=== PATIENT | male | born 1965 | race Caucasian/White ===

== ENCOUNTER → 2021-02-09 | Outpatient (CLI) | payer SELFPAY ==
[~2021-02-09] VITALS: Ht 185.4 cm; Wt 100.0 kg
[~2021-02-09] MED LIST: LIDOCAINE 1% INJ 20 ML 20 ML VIAL INJ ONE
--- NOTE | 2021-02-09 12:35 | Diagnostic Imaging Report ---
INDICATION: Left thyroid nodule. Patient presents for ultrasound-guided fine-needle aspiration and biopsy. Patient brought to the procedure and placed on table supine position. Ultrasound imaging of the left neck was performed to evaluate appropriate entry site. Left neck was then prepped and draped in usual sterile fashion. Small amount of 1% lidocaine was utilized for local anesthesia. A total of 4 passes were made into the dominant solid nodule left lobe of the thyroid utilizing 25-gauge needles and fine-needle aspiration technique. A single pass was made with a Rotex needle and a Rotex biopsy was performed. Hermitage were removed and hemostasis was obtained. Patient tolerated the procedure well and left the department in stable condition. IMPRESSION: Successful left lobe thyroid nodule, fine-needle aspiration and Rotex biopsy. Pathology results are currently pending. Dictated by: Dictated on workstation # [id number]
== END ==
LOC: RAD 11:00
PROVIDERS: ATTEND Nurse Practitioner Family
DX: E04.1 Nontoxic single thyroid nodule (principal)
CPT/HCPCS: 10005

== ENCOUNTER 2021-03-22 16:11 | Emergency (ER) | payer SELFPAY ==
[~2021-03-22] VITALS: Ht 185 cm; Wt 97.0 kg
--- OUTSIDE RECORDS SUMMARY | 2021-03-22 16:16 | XMS REPORT | Clinical Summary ---
Author Author [facility] Organization [facility] Address Unknown Phone Unavailable Care Team Providers Care Rotary Drum Dyer Name Role Phone No Pcp, Na PCP Unavailable Source Comments Some departments are not documenting in the electronic medical record. If you d o not see the information that you expected, contact Release of Information in [facility] [employer] Information Management department at [phone] for further assistan ce in locating additional records.[facility] Allergies Not on File Medications Not on file Active Problems Not on file Social History Date Tobacco Use Types Packs/Day Years Used Never Assessed Sex Assigned at Date Recorded Not on file Last Filed Vital Signs Not on file Plan of Treatment Health Maintenance Due Date Last Done Comments HIV SCREENING 1979 DTAP/TDAP VACCINES (1 - 1982 Tdap) HEPATITIS C SCREENING 1982 PHYSICAL (COMPREHENSIVE) 1982 EXAM COLORECTAL CANCER 2014 SCREENING SHINGLES RECOMBINANT 2014 VACCINE (1 of 2) INFLUENZA VACCINE 12/07/2020 Results Not on filefrom Last 3 Months Advance Directives Patient Key Holder Explanation Type Date Recorded Advance Directive/DPOA Care Teams Start Date End Date Rotary Drum Dyer Relationship Specialty 12/27/17 No Pcp, Na PCP - General
--- NOTE | 2021-03-22 17:45 | ED EENT ---
History of Present Illness General Chief Complaint: Oral/Throat Problems Stated Complaint: SORE THROAT Nursing Triage Note: PT ARRIVES TO ER WITH C/O RIGHT SIDE THROAT PAIN THAT HAS BEEN GOING ON FOR 2 MONTHS BUT WORSE SINCE LAST NIGHT. PT HAS SEEN PCP HENNAPLE TIMES AND HAS GOTTEN A BIOPSY TAKEN THAT SHOWED A BENIGN MASS Source: patient Exam Limitations: no limitations History of Present Illness Date Seen by Provider: Mar 22, 2021 Time Seen by Provider: 17:35 Initial Comments Patient is a 55-year-old male who presents to the emergency department today with a chief complaint of right-sided neck pain going on for about 2 months. Patient has seen his primary care physician multiple times through [facility] and had an ultrasound done of his neck. He states he was scheduled for a CAT scan but due to timing has not been able to get that done. Patient denies any fevers or chills. He endorses progressive dysphagia to solids and not liquids. He denies any significant weight loss but thinks he might of lost a few pounds secondary to it hurts when he eats. He denies shortness of breath chest pain. No abdominal pain nausea vomiting or diarrhea. Denies black or bloody stools. He has been taking Tylenol and ibuprofen without any relief of symptoms. He states "hydrocodone does not work for me". Per review of the medical record the patient did have a fine-needle biopsy of a mass on his left thyroid within the last month. These were "very low risk for malignant pathology." Patient does smoke cigarettes. All other review of systems reviewed and negative except as stated. Timing/Duration: gradual Location: throat Associated Symptoms: sore throat Allergies and Home Medications Allergies Coded Allergies: No Known Drug Allergies (Unverified , 02/09/21) Patient Home Medication List Home Medication List Reviewed: Yes Review of Systems Review of Systems Constitutional: see HPI Eyes: No Symptoms Reported Ears: No Symptoms Reported Nose: no symptoms reported Mouth: no symptoms reported Throat: other (Sore throat with swallowing) Respiratory: no symptoms reported Cardiovascular: no symptoms reported Gastrointestinal: no symptoms reported All Other Systems Reviewed Negative Unless Noted: Yes Past Cuamgcb-Zlfods-Weeicf Hx Patient Social History Tobacco Use?: Yes Smoking Status: Current Everyday Smoker Substance use?: Yes Substance type: Marijuana Substance frequency: Couple times a week Alcohol Use?: No Pt feels they are or have been: No Immunizations Up To Date Influenza Vaccine Up-to-Date: No; Not Current Physical Exam Vital Signs Vital Signs - First Documented 03/22/21 17:14 Temp 36.6 Pulse 91 Resp 18 B/P (MAP) 115/80 (92) Pulse Ox 97 O2 Delivery Room Air Height, Weight, BMI Height: '" Weight: lbs. oz. kg; 28.00 BMI Method: General Appearance: WD/WN, no apparent distress Eyes: bilateral eye normal inspection, bilateral eye PERRL, bilateral eye EOMI Nose: normal inspection Mouth/Throat: pharynx normal Neck: non-tender, full range of motion, supple, normal inspection Cardiovascular: regular rate, rhythm Respiratory: lungs clear, normal breath sounds, no respiratory distress Gastrointestinal: non tender, soft Neurologic/Psychiatric: alert, normal mood/affect, oriented x 3 Skin: normal color, warm/dry Progress/Results/Core Measures Results/Orders Vital Signs/I&O 03/22/21 17:14 Temp 36.6 Pulse 91 Resp 18 B/P (MAP) 115/80 (92) Pulse Ox 97 O2 Delivery Room Air Blood Pressure Mean: 92 Progress Progress Note : Time: 17:56 Progress Note Patient complaining of right-sided throat pain. Status post recent biopsy of the left thyroid nodule. Patient's vital signs are stable, he does not have a hoarse voice. He is able to handle his own secretions. Oxygen saturations are 97% on room air. I do not see any emergent reason at this time to do an emergent CT of the soft tissues of the neck. Patient clinically looks well. He has follow-up arranged through [facility]. I have strongly encouraged him to quit smoking as well as to really be aggressive at talking to his primary care provider about obtaining an outpatient CT. Patient verbalized understanding of the plan of care. I am sending him with viscous lidocaine to swish and swallow as well as some tramadol. I have given him good return precautions, all questions are sought and answered. Departure Impression Primary Impression: Dysphagia Qualified Codes: R13.13 - Dysphagia, pharyngeal phase Disposition: 01 HOME, SELF-CARE Condition: Stable Departure-Patient Inst. Decision time for Depature: 17:48 Referrals: [facility] (PCP/Family) Primary Care Physician Patient Instructions: Dysphagia (DC) Add. Discharge Instructions: Please follow-up closely with your primary care provider through [facility]. I have prescribed you some viscous lidocaine which may help with the pain and swallowing. I have also prescribed you some tramadol which may help your discomfort. You need to pester your primary care physician to obtain the CT scan of your neck. Return to the emergency department if you have any new, concerning or worsening complaints or complete inability to swallow your own secretions. Scripts Lidocaine HCl (Lidocaine HCl Viscous) 15 Ml Solution 5 ML MM BID PRN for throat pain, #100 EA swish and swallow Prov: DALJIT SOLIMAN MD 03/22/21 Tramadol HCl (Tramadol HCl) 50 Mg Tablet 50 MG PO Q6H PRN for PAIN, #15 TAB 0 Refills Prov: DALJIT SOLIMAN MD 03/22/21 DALJIT SOLIMAN MD Mar 22, 2021 17:45
[2021-03-22] MEDS ORDERED: TRM50T PO (17:56)
[2021-03-22] MEDS ORDERED: LIDO20SO23 MM (17:56)
[2021-03-22 18:04] VITALS: BP 145/85
== END 2021-03-22 18:04 | disposition home or self-care (01) ==
LOC: EDUNIT# 16:11 → ER 16:12
DX: R13.10 Dysphagia, unspecified (principal); F17.200 Nicotine dependence, unspecified, uncomplicated
CPT/HCPCS: 99281

== ENCOUNTER → 2021-04-16 | Outpatient (CLI) | payer SELFPAY ==
[~2021-04-16] MED LIST changes: +LIDO20SO23 MM; -LIDOCAINE 1% INJ 20 ML 20 ML VIAL INJ ONE; +TRM50T PO
--- NOTE | 2021-04-16 13:19 | Diagnostic Imaging Report ---
CLINICAL INDICATION: Patient with right neck pain times several months. Patient has history of smoking. EXAM: Axial CT scan of the neck soft tissue performed without IV contrast. Sagittal and coronal reformatted images are created. Auto Exposure Controls were utilized during the CT exam to meet ALARA standards for radiation dose reduction. COMPARISON: None. FINDINGS: The nasopharynx, oropharynx, hypopharynx, and laryngeal soft tissue structures are symmetric and unremarkable. The visualized portions of the oral cavity, tongue, sublingual and submandibular regions are unremarkable. Salivary glands are unremarkable. There is a partially obscured left thyroid lobe nodule measuring at least 2.8 cm. There is also enlargement of the left thyroid lobe compared to the right side. There is no lymphadenopathy. Patient is edentulous. Limited visualization of the intracranial structures shows no significant abnormality. Orbits and globes are unremarkable. There is mild mucosal thickening involving the ethmoid sinus. Mastoid air cells are clear. There are small cervical spine degenerative spurs. Visualized upper lung avery are clear with mild emphysematous changes. IMPRESSION: 1: There is a partially obscured at least 2.8 cm low-density lesion in the left thyroid lobe. Nonemergent thyroid ultrasound would better evaluate. 2: Otherwise, there is no neck soft tissue mass or lymphadenopathy. 3: Remainder of this exam shows no other significant abnormality. Dictated by: Dictated on workstation # [id number]
== END ==
LOC: RAD 12:45
PROVIDERS: ATTEND Pediatrics
DX: M54.2 Cervicalgia (principal); R13.10 Dysphagia, unspecified; Z87.891 Personal history of nicotine dependence
CPT/HCPCS: 70490

== ENCOUNTER → 2021-11-13 | Outpatient (CLI) | payer OTHER ==
--- NOTE | 2021-11-13 13:57 | Diagnostic Imaging Report ---
INDICATION: Left hip pain. COMPARISON: None FINDINGS: Frontal radiographic view of the pelvis and 2 dedicated radiographic views of the left hip were obtained. There is a large subchondral area of abnormal sclerosis with central lucency involving the superior margins of the left femoral head. Findings are concerning for femoral head osteonecrosis. No acute osseous abnormalities seen. Joint spaces are maintained. No unexpected radiopaque foreign bodies are identified. IMPRESSION: 1. 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 Correlation with MRI is recommended. 2. No acute fracture or dislocation of the pelvis or left hip. Dictated by: Dictated on workstation # [id number]
== END ==
LOC: RAD 13:18
PROVIDERS: ATTEND Family Medicine
DX: Z02.71 Encounter for disability determination (principal); M25.552 Pain in left hip

== ENCOUNTER 2022-01-18 08:41 | Outpatient (RCR) | payer SELFPAY | END 2022-02-05 | disposition home or self-care (01) | LOC: ONC 08:41 | PROVIDERS: ATTEND Internal Medicine Hematology & Oncology | DX: C02.4 Malignant neoplasm of lingual tonsil (principal) | CPT/HCPCS: 99204 ==

== ENCOUNTER → 2022-02-23 | Outpatient (CLI) | payer SELFPAY ==
[~2022-02-23] MED LIST changes: +CATHETER FLUSH 10 ML SYR IV PRN; +HOLD METFORMIN - RECEIVED CONTRAST 20 ML VIAL IV SCH; +IOHEXOL 350 MG/ML 100 ML (OMNIPAQUE 350) VIAL IV ONE; +LISI10TA25 PO; +MELO10CA3 PO; +NS 100 ML (IVPB) BAG IV ONE
--- NOTE | 2022-02-23 15:25 | Diagnostic Imaging Report ---
INDICATION: Head and neck cancer. COMPARISON: Neck CT dated 04/16/2021. TECHNIQUE: A post IV contrast enhanced CT neck, chest, abdomen, and pelvis was performed with multiplanar reconstructions. FINDINGS: New from prior is a large enhancing right neck mass measuring 4.9 cm AP x 3.3 cm transverse x 5.4 cm cephalocaudal. This superiorly displaces and distorts the right lateral tongue contour and laterally abuts the medial cortex of the right mandibular angle and caudally terminates just above the level of the hyoid involving the anterior wall of the right valleculae. The free edge of the epiglottis is normal. The pre-epiglottic fat shows no distortion. There is a large right level 2 cervical lymph node measuring 2.8 x 2.1 cm. There is a partially necrotic smaller but presumed metastatic left cervical level 2 node measuring 1.7 x 1.5 cm. There are some equivocal posterior triangle nodes above and below the hyoid, the largest of which measures 1 x 0.6 cm. Prevertebral and retropharyngeal spaces are normal. There is leftward deviation of the rosa and hypopharynx. The submandibular and parotids are unremarkable. There is no suspicious thyroidal lesion. The vascularity is patent. The visualized intracranial contents, orbits, and sinonasal spaces are unremarkable. There is no mastoid effusion. No suspicious lytic or sclerotic bone lesion. CHEST: No lung mass, infiltrate, or suspicious pulmonary nodule. No thoracic adenopathy. No edema, pneumonia, or chest effusion. ABDOMEN/PELVIS: There is no pathologically enlarged or distorted abdominopelvic mesenteric or retroperitoneal lymph nodes. No omental infiltration. The liver, spleen, adrenals, pancreas, and gallbladder are unremarkable. The unobstructed kidneys are normal. The atherosclerotic aorta is patent and nonaneurysmal. The prostate, seminal vesicles, and urinary bladder are unremarkable. There is no suspicious lytic or sclerotic bony lesion in the neck, chest, abdomen, or pelvis. There is degenerative disease and chronic L5 spondylolysis defects. IMPRESSION: 1. Large presumed primary malignant right neck mass with at least bilateral level 2 cervical adenopathy presumed. A few additional shotty posterior triangle nodes are noted, indeterminate. 2. No findings of metastatic disease to the chest, abdomen, or pelvis. Dictated by: Dictated on workstation # [id number]
== END ==
LOC: RAD 11:29
PROVIDERS: ATTEND Internal Medicine Hematology & Oncology
DX: C02.4 Malignant neoplasm of lingual tonsil (principal)
CPT/HCPCS: 70491; 71260; 74176

== ENCOUNTER 2022-02-24 05:32 | Outpatient (CLI) | payer MEDICAID ==
[~2022-02-24] VITALS: Ht 187 cm; Wt 95.0 kg
[~2022-02-24 05:32] MED LIST changes: -CATHETER FLUSH 10 ML SYR IV PRN; -HOLD METFORMIN - RECEIVED CONTRAST 20 ML VIAL IV SCH; -IOHEXOL 350 MG/ML 100 ML (OMNIPAQUE 350) VIAL IV ONE; -LISI10TA25 PO; -MELO10CA3 PO; -NS 100 ML (IVPB) BAG IV ONE
[2022-02-25] MEDS ORDERED: LISI10TA25 PO (13:54)
[2022-02-25] MEDS ORDERED: MELO10CA3 PO (13:54)
[2022-03-03] MEDS ORDERED: PANT40TA2 PO (09:27)
[2022-03-03] MEDS ORDERED: SUCR1TAB36 PO (09:27)
[2022-03-03] MEDS ORDERED: ACHD5005 PO (09:27)
== END 2022-02-25 14:06 | disposition home or self-care (01) ==
LOC: PREOP 05:32
PROVIDERS: ATTEND Surgery
DX: Z01.818 Encounter for other preprocedural examination (principal)

== ENCOUNTER 2022-03-03 07:06 | Day surgery (SDC) | payer MEDICAID ==
[2022-03-03] VITALS (8 sets, daily range): BP systolic 103–128; BP diastolic 66–87
[~2022-03-03] VITALS: Ht 185.4 cm; Wt 95.0 kg
[~2022-03-03 07:06] MED LIST changes: +LISI10TA25 PO; +MELO10CA3 PO
[2022-03-03] MEDS ORDERED: 0.9% SODIUM CHLORIDE PF INJ 20 ML VIAL ONE (07:16)
[2022-03-03] MEDS ORDERED: LIDOCAINE/EPI 1%-1:100,000 (XYLOCAINE) 10 ML ONE (07:17)
[2022-03-03] MEDS ORDERED: HEParin (CENTRAL IV FLUSH) 500 UNIT/5 ML SYR ONE (07:17)
[2022-03-03] MEDS ORDERED: PROPOFOL INJECTION 50 ML IV ONE ×2 (07:30→08:43)
[2022-03-03] MEDS ORDERED: fentaNYL INJ 100 MCG/2 ML AMP ONE (07:31)
[2022-03-03] MEDS ORDERED: MIDAZOLAM 2 MG/2 ML (VERSED) VIAL ONE (07:31)
[2022-03-03] MEDS ORDERED: NS (IVPB) 50 ML ONE (07:40)
[2022-03-03] MEDS ORDERED: ceFAZolin INJECTION 2,000 MG ONE (07:40)
[2022-03-03] MEDS ORDERED: LACTATED RINGERS 1,000 ML IV PRN (07:45)
[2022-03-03] MEDS ORDERED: ceFAZolin INJECTION 2,000 MG in NS (IVPB) 50 ML IV ONE (07:45)
--- NOTE | 2022-03-03 08:15 | Progress Note-Pre Operative ---
Pre-Operative Progress Note Date of Available H&P: Feb 23, 2022 Date H&P Reviewed: Mar 03, 2022 Time H&P Reviewed: 08:09 History & Physical: H&P Reviewed, Patient Examed, No changes noted Pre-Operative Diagnosis: Tonsillar CA, Venous insufficiency CARLOS MUNSON DO Mar 03, 2022 08:15
--- NOTE | 2022-03-03 09:14 | Diagnostic Imaging Report ---
Indication: Port-A-Cath placement Intraoperative fluoroscopy view obtained in surgery during Port-A-Cath placement. Single view obtained, 5.4 seconds of fluoroscopy time was used. Single view demonstrates Port-A-Cath over the right chest with catheter entering the right subclavian vein, catheter tip overlies the upper SVC. IMPRESSION: Intraoperative fluoroscopy view demonstrates Port-A-Cath placement as above. Dictated by: Dictated on workstation # [id number]
--- NOTE | 2022-03-03 09:21 | Anesthesia-General Post-Op ---
MAC Patient Condition Mental Status/LOC: Same as Preop Cardiovascular: Satisfactory Nausea/Vomiting: Absent Respiratory: Satisfactory Pain: Controlled Complications: Absent Post Op Complications Complications None Follow Up Care/Instructions Patient Instructions None needed. Anesthesiology Discharge Order Discharge Order Patient is doing well, no complaints, stable vital signs, no apparent adverse anesthesia problems. No complications reported per nursing. HELDER STAPLES CRNA Mar 03, 2022 09:21
[2022-03-03] MEDS ORDERED: morphine INJ 10 MG/ML 1ML (SYR OR VIAL) ONE (09:23)
--- NOTE | 2022-03-03 09:25 | Progress Note-Post Operative ---
Post-Operative Progess Note Surgeon (s)/Automobile Spring Repairer (s) Surgeon CARLOS MUNSON DO Automobile Spring Repairer: PIPER ShinII Pre-Operative Diagnosis Tonsillar CA, Venous insufficiency Post-Operative Diagnosis same plus Gastric ulcer duodenitis esophagitis Procedure & Operative Findings Date of Procedure 03/03/22 Procedure Performed/Findings Luana-Cath Placement EGD with biopsy PROCEDURE: The patient was taken to the operating suite, was prepped and draped in the sterile fashion. A surgical pause was performed. Local anesthetic was infiltrated at the clavicle and along the tract to the right anterior chest, where more local was placed so the pocket could be created. Using an 18 gauge finder needle with negative inspiration the right subclavian vein was accessed on the first attempt and dark nonpulsatile blood was withdrawn. The wire was inserted and fluoroscopy assured proper placement. The needle was removed and the wire was then secured. A #11 blade scalpel was used to make an incision over the right chest and along guidewire. Cautery was used to dissect down to the pectoral fascia. A pocket was created with blunt dissection. The catheter was then tunneled to the right chest pocket. The dilator sheath was then advanced over the wire under fluoroscopy and the dilator and wire were removed. The Groshong catheter was inserted through the sheath and the sheath was then removed. The Groshong wire was removed. Fluoroscopy was used to cut to length and this was then attached to the port which was then placed within the pocket. The port was then accessed without difficulty. It was then flushed with saline and then heparin. The port was secured in place with a 3-0 Prolene stitch. The subcutaneous tissues were then reapproximated using 3-0 Vicryl. Finally the skin was closed with 4-0 undyed monocryl, 3 interrupted sutures. The areas were then washed and dried. Skin Affix was placed over incision. The insertion point of the neck Skin Affix was placed over the incision. The patient tolerated the procedure well without complication. PROCEDURE NOTE: The patient was in the OR had just had Port placed, left in the supine position. He was sedated by the PAYROLL AND BENEFITS ANALYST who then monitored vitals the entire time, heart rate, blood pressure and pulse ox and the scope was inserted down the mouth through the esophagus into the stomach. On the way down, noted severe esophagitis, took a picture, pushed into the stomach and noted gastritis and antral ulcers. Pushed into the duodenum; duodenum looked inflamed and did a biopsy here. Pulled back and did a biopsy of the antral ulcers, then retroflexed the scope, saw a moderate hiatal hernia, took a picture of this and then pulled the scope into the GE junction and then did a biopsy of the GE junction. Pushed the scope back into the stomach and watched as needle came in, grabbed the catheter with the wire and then pulled this all the way out of the mouth. Attached PEG and then followed it back down into stomach and took a picture of the PEG in position. Next, suctioned all the air out of the stomach. At this point pulled the scope up the esophagus and out the mouth. The patient tolerated the procedure, and he was taken to PACU Anesthesia Type IV sedation by Anesthesia Estimated Blood Loss Estimated blood loss (mL): less than 5ml Specimens/Packing Specimens Removed none CARLOS MUNSON DO Mar 03, 2022 09:25
[2022-03-03] MEDS ORDERED: PANT40TA2 PO (09:27)
[2022-03-03] MEDS ORDERED: SUCR1TAB36 PO (09:27)
[2022-03-03] MEDS ORDERED: ACHD5005 PO (09:27)
--- NOTE | 2022-03-03 09:29 | Endoscopy Discharge Instruct ---
Endo Procedure/Findings Findings 1.: Gastric Ulcer 2.: Hiatal Hernia Discharge Instructions - Activity: You might feel a little sleepy until tomorrow. This is due to the medicine you received to relax you. Until tomorrow, you should: NOT drive a car, operate machinery or power tools. NOT drink any alcoholic beverages. NOT make any important decisions or sign importortant papers. Do not return to work until tomorrow, unless otherwise instructed. Resume previous activities tomorrow. Diet: Start by taking liquids. If you tolerate liquids, advance to solid food. 1.: EGD in 6-8 weeks Notify Physician - If you experience excessive bleeding, unusual abdominal pain, fever, or chest pain, contact your doctor immediately. CARLOS MUNSON DO Mar 03, 2022 09:29
[2022-03-03] MEDS ORDERED: ONDANSETRON 4 MG/2 ML (SDV) Z0FRAN IVP PRN (09:30)
[2022-03-03] MEDS ORDERED: MEPERIDINE (DEMEROL) INJ 50 MG/ML IVP ONE (09:30)
[2022-03-03] MEDS ORDERED: morphine INJ 10 MG/ML 1ML (SYR OR VIAL) IVP ONE (09:30)
--- NOTE | 2022-03-03 09:30 | Discharge Inst-Surgical ---
Discharge Inst-Surgical Depart Medication/Instructions New, Converted or Re-Newed RX: Transmitted to Pharmacy Patient Instructions Follow up Appt: Make appointment for 1 week. [phone] Instructions: No lifting greater than 20 pounds. No strenuous activity. May shower in 24 hours, no tub bath or soaking. Use incentive spirometer at home as directed. No Smoking Skin/Wound Care: May remove bandages in am. You need to leave the Dermabond on incision it will fall off on it's own. Symptoms to Report: Appetite Changes, Extremity Discoloration, Numbness/Tingling, Swelling Increased, Bleeding Excessive, Eyesight Changes, Pain Increased, Urine Color Change, Constipation(Persistent), Fever over 101 degree F, Pain/Pressure in chest, Urinating Difficulty, Cough Up/Vomit Blood, Heart Beat Irreg/Pounding, Pain/Pressure in jaw, Cramps in feet or legs, Lightheadedness, Pain/Pressure in shoulder, Diarrhea(Persistent), Memory Changes Suddenly, Questions/Concerns, Weight gain consecutive days, Dizziness/Fainting, Nausea/Vomiting, Shortness of Breath, Weight gain over 2 pounds If questions or concerns contact your physician Or seek help at emergency department. Activity Activity as Tolerated: Yes Activity Instructions: Avoid Stress to Incision Driving Instructions: No Driving/Refer to Dr. Olson Discharge Diet: No Restrictions Diet After 24 Hours: Clear Liquid if Nauseous If Any Problems/Questions/Issu: Contact Your Physician, Go to Emergency Room Skin/Wound Care Infection Signs and Symptoms: Increased Redness, Foul Odor of Wound, Increased Drainage, Skin Itchy or Has a Rash, Increased Swelling, Temperature Above 101 F Bathing Instructions: Shower Stitches/[place]/Dermabond Dis: CARLOS Roland DO Mar 03, 2022 09:30
--- NOTE | 2022-03-04 03:47 | OPERATIVE REPORT ---
DATE OF SERVICE: 03/03/2022 PREOPERATIVE DIAGNOSIS: Tonsillar carcinoma. POSTOPERATIVE DIAGNOSIS: Tonsillar carcinoma. PROCEDURE: Gastrostomy tube placement. SURGEON: Kayy Stevenson DO and see Dr. Tamayo dictation for EGD. ANESTHESIA: Per MDA. ESTIMATED BLOOD LOSS: None. COMPLICATIONS: None. INDICATIONS: The patient is a 56-year-old male with tonsillar carcinoma. He was discussed risks and benefits of procedure and consent was signed in the chart. DESCRIPTION OF PROCEDURE: Dr. Tamayo EGD, he inflated the stomach where that was visualized and it was ballottable. The areas on the stomach was prepped and draped in sterile fashion. Local anesthetic was infiltrated. A #11 blade scalpel was used to make a small stab incision. Angiocath needle was inserted through the incision and the needle was removed. This was then snared by Dr. Tamayo where the guidewire was inserted, which he brought out through the mouth. The gastrostomy tube was attached to the wire, which then I pulled slowly until this was brought out through the abdominal incision and a bolster was up against the stomach and abdominal wall. This was then secured with an external bolster and cut to length and was inserted on the tube. The patient then had the area washed and dried and sterile bandages were applied. The patient tolerated the procedure well. Please see Dr. Tamayo dictation. Job ID: [id number] DocumentID: [id number] Dictated Date: 03/03/2022 17:49:39 Automatic Serging Machine Operator Date: 03/04/2022 03:45:28 Dictated By: KAYY STEVENSON DO
== END 2022-03-03 10:30 | disposition home or self-care (01) ==
LOC: SDC 07:06
PROVIDERS: ATTEND Surgery
DX: C02.4 Malignant neoplasm of lingual tonsil (principal); I87.2 Venous insufficiency (chronic) (peripheral); K25.9 Gastric ulcer, unspecified as acute or chronic, without hemorrhage or perforation; K29.80 Duodenitis without bleeding; K20.90 Esophagitis, unspecified without bleeding; K29.70 Gastritis, unspecified, without bleeding; K31.9 Disease of stomach and duodenum, unspecified; F17.210 Nicotine dependence, cigarettes, uncomplicated; Z28.310 Unvaccinated for COVID-19
CPT/HCPCS: 36561; 43239; 43246; 76000; 87081; C1788

== ENCOUNTER → 2022-03-08 | Outpatient (RCR) | payer MEDICAID ==
[2022-02-23 11:32] LABS: BASOPHILS # (AUTO) 0.1 10^3/uL (0.0-0.1); BASOPHILS % (AUTO) 1 % (0-10); EOSINOPHILS # (AUTO) 0.3 10^3/uL (0.0-0.3); EOSINOPHILS % (AUTO) 2 % (0-10); HEMATOCRIT 42 % (40-54); HEMOGLOBIN 14.1 g/dL (13.3-17.7); LYMPHOCYTES # (AUTO) 1.5 10^3/uL (1.0-4.0); LYMPHOCYTES % (AUTO) 10 % (12-44); MEAN CORPUSCULAR HEMOGLOBIN 31 pg (25-34); MEAN CORPUSCULAR HGB CONC 34 g/dL (32-36); MEAN CORPUSCULAR VOLUME 92 fL (80-99); MEAN PLATELET VOLUME 10.1 fL (9.0-12.2); MONOCYTES # (AUTO) 0.8 10^3/uL (0.0-1.0); MONOCYTES % (AUTO) 5 % (0-12); NEUTROPHILS # (AUTO) 12.9 10^3/uL (1.8-7.8); NEUTROPHILS % (AUTO) 82 % (42-75); PLATELET COUNT 296 10^3/uL (130-400); WHITE BLOOD COUNT 15.7 10^3/uL (4.3-11.0)
[2022-02-23 11:54] LABS: BILIRUBIN,TOTAL 0.5 MG/DL (0.1-1.0); CALCIUM 9.7 MG/DL (8.5-10.1); CREATININE SERUM 1.03 MG/DL (0.60-1.30); POTASSIUM 4.5 MMOL/L (3.6-5.0); TOTAL PROTEIN 6.9 GM/DL (6.4-8.2)
[~2022-03-08] VITALS: Ht 185.4 cm; Wt 95.3 kg
[~2022-03-08] MED LIST changes: +ACHD5005 PO; +CISPLATIN IV SCH; +DEXAMETHASONE IV SCH; +FOSAPREPITANT (CANCER CENTER) 150 MG in NS (IVPB) CANCER CENTER ONLY 150 ML IV SCH; +HEParin (CENTRAL IV FLUSH) 500 UNIT/5 ML SYR IV PRN; +MAGNESIUM SULFATE IV SCH; +MANNITOL IV SCH; +NS IV 1000 ML (CANCER CTR) IV SCH; +NS IV SCH; +ONDANSETRON IV SCH; +PANT40TA2 PO; +POTASSIUM CHLORIDE IV SCH; +SUCR1TAB36 PO; +[UNRECOGNIZED DRUG - OTHER] IV SCH
[2022-03-08 10:14] LABS: BASOPHILS # (AUTO) 0.1 10^3/uL (0.0-0.1); BASOPHILS % (AUTO) 1 % (0-10); EOSINOPHILS # (AUTO) 0.6 10^3/uL (0.0-0.3); EOSINOPHILS % (AUTO) 3 % (0-10); HEMATOCRIT 41 % (40-54); HEMOGLOBIN 13.7 g/dL (13.3-17.7); LYMPHOCYTES # (AUTO) 1.8 10^3/uL (1.0-4.0); LYMPHOCYTES % (AUTO) 9 % (12-44); MEAN CORPUSCULAR HEMOGLOBIN 31 pg (25-34); MEAN CORPUSCULAR HGB CONC 34 g/dL (32-36); MEAN CORPUSCULAR VOLUME 90 fL (80-99); MEAN PLATELET VOLUME 10.4 fL (9.0-12.2); MONOCYTES # (AUTO) 1.1 10^3/uL (0.0-1.0); MONOCYTES % (AUTO) 6 % (0-12); NEUTROPHILS # (AUTO) 16.3 10^3/uL (1.8-7.8); NEUTROPHILS % (AUTO) 82 % (42-75); PLATELET COUNT 286 10^3/uL (130-400)
[2022-03-08 10:38] LABS: BILIRUBIN,TOTAL 0.6 MG/DL (0.1-1.0); CALCIUM 10.4 MG/DL (8.5-10.1); MAGNESIUM 1.9 MG/DL (1.6-2.4); POTASSIUM 4.4 MMOL/L (3.6-5.0); TOTAL PROTEIN 7.2 GM/DL (6.4-8.2)
== END | disposition home or self-care (01) ==
LOC: ONC 02-23 09:49
PROVIDERS: ATTEND Internal Medicine Hematology & Oncology
DX: Z51.0 Encounter for antineoplastic radiation therapy (principal); Z51.11 Encounter for antineoplastic chemotherapy; C02.4 Malignant neoplasm of lingual tonsil
CPT/HCPCS: 77300; 77301; 77334; 77338; 77470; 80053; 83735; 85025; G0463; 36415; 36591; 77386; 96360; 96361; 96367; 96375; 96413; 99213

== ENCOUNTER 2022-03-21 16:48 | Emergency (ER) | payer MEDICAID ==
[~2022-03-21] VITALS: Ht 185 cm; Wt 88.5 kg
[~2022-03-21 16:48] MED LIST changes: -CISPLATIN IV SCH; -DEXAMETHASONE IV SCH; -FOSAPREPITANT (CANCER CENTER) 150 MG in NS (IVPB) CANCER CENTER ONLY 150 ML IV SCH; -HEParin (CENTRAL IV FLUSH) 500 UNIT/5 ML SYR IV PRN; -MAGNESIUM SULFATE IV SCH; -MANNITOL IV SCH; -NS IV 1000 ML (CANCER CTR) IV SCH; -NS IV SCH; -ONDANSETRON IV SCH; -POTASSIUM CHLORIDE IV SCH; -[UNRECOGNIZED DRUG - OTHER] IV SCH
--- NOTE | 2022-03-21 17:04 | ED Abdominal Pain ---
General Chief Complaint: Abdominal/GI Problems Stated Complaint: VOMITING/LETHARGIC Nursing Triage Note: pt states he has throat cancer and is on chemo, has had persistent nasuea and vomiting for the past few days. unable to keep anything down, has LLQ abd pain Source of Information: Patient Exam Limitations: No Limitations History of Present Illness Date Seen by Provider: Mar 21, 2022 Time Seen by Provider: 17:04 Initial Comments 56 y/o male presents this afternoon with c/o nausea and vomiting x 1 week. Pt states he is currently on radiation and chemotherapy for throat cancer. He has radiation 5x/wk and chemotherapy once/wk--has had two treatments so far. Pt has some epigastric and LUQ abdominal pain during episodes of vomiting, but otherwise denies pain. Pt states he has had a poor appetite for several weeks. Timing/Duration: 1 Week Severity/Quality: Mild Location: LUQ Radiation: No Radiation Modifying Factors: Improves With Analgesics, Improves With Antacids; Worsens With Vomiting Associated Symptoms: No Back Pain, No Chest Pain, No Diaphoresis, No Feve r/Chills, No Fatigue, No Headache, No Heartburn; Nausea/Vomiting; No Rash, No Shortness of Air, No Syncope, No Weakness Allergies and Home Medications Allergies Coded Allergies: No Known Drug Allergies (Unverified , 03/03/22) Patient Home Medication List Home Medication List Reviewed: Yes Hydrocodone Bit/Acetaminophen (HYDROcodone/APAP 5 MG/325 MG TAB) 1 Tab Tab, 1 TAB PO Q8H PRN for PAIN-MODERATE (5-7) Prescribed by: CARLOS MUNSON on 03/03/22 09 Lidocaine HCl (Lidocaine HCl Viscous) 15 Ml Solution, 5 ML MM BID PRN for throat pain Prescribed by: DALJIT SOLIMAN on 03/22/21 1756 Lisinopril (Lisinopril) 10 Mg Tablet, 10 MG PO DAILY, (Reported) Entered as Reported by: FELIPE MARTINEZ on 02/25/22 135 Meloxicam, Submicronized (Meloxicam) 10 Mg Capsule, 15 MG PO DAILY, (Reported) Entered as Reported by: FELIPE MARTINEZ on 02/25/22 1354 Pantoprazole Sodium (Protonix) 40 Mg Tablet.dr, 40 MG PO BID Prescribed by: CARLOS MUNSON on 03/03/22 09 Sucralfate (Carafate) 1 Gram Tablet, 1 GM PO ACHS Prescribed by: CARLOS MUNSON on 03/03/22926 Tramadol HCl (Tramadol HCl) 50 Mg Tablet, 50 MG PO Q6H PRN for PAIN Prescribed by: DALJIT SOLIMAN on 03/22/21 1756 Review of Systems Review of Systems Constitutional: No chills, No diaphoresis, No fever; malaise; No weakness EENTM: No Symptoms Reported Respiratory: No Symptoms Reported Cardiovascular: No Symptoms Reported Gastrointestinal: Abdominal Pain; Denies Blood Streaked Stools, Denies Diarrhea, Denies Difficulty Swallowing; Nausea, Poor Appetite; Denies Poor Fluid Intake; Vomiting Genitourinary: Denies Burning, Denies Discharge, Denies Drainage, Denies Frequency, Denies Flank Pain, Denies Hematuria, Denies Incontinence, Denies Pain, Denies Urgency Musculoskeletal: No back pain, No muscle pain, No muscle stiffness, No muscle weakness Skin: no symptoms reported Psychiatric/Neurological: No Symptoms Reported Endocrine: No Symptoms Reported Hematologic/Lymphatic: No Symptoms Reported Past Hipvcdm-Yjryii-Vxpbeh Hx Patient Social History Tobacco Use?: No Smoking Status: Former Smoker Substance use?: No Alcohol Use?: No Pt feels they are or have been: No Immunizations Up To Date Tetanus Booster (TDap): Unknown Influenza Vaccine Up-to-Date: No; Not Current Seasonal Allergies Seasonal Allergies: Yes Past Medical History Surgery/Hospitalization HX: throat cancer port placement, peg tube placement Surgeries: No Respiratory: No Currently Using CPAP: No Currently Using BIPAP: No Cardiac: Yes Hypertension Neurological: No Genitourinary: No Gastrointestinal: Yes Gastroesophageal Reflux Musculoskeletal: No Endocrine: No HEENT: Yes (TONSILLAR CA) Cancer: Yes (TONSILLAR CANCER) Psychosocial: Yes Sleep Difficulties, Anxiety Integumentary: No Blood Disorders: No Physical Exam Vital Signs Vital Signs - First Documented 03/21/22 16:55 Temp 36.5 Pulse 92 Resp 20 B/P (MAP) 129/92 (104) Pulse Ox 98 Capillary Refill : Less Than 3 Seconds Height/Weight/BMI Height: '" Weight: lbs. oz. 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, no motor/sensory deficits, alert, normal mood/affect, oriented x 3 Skin: normal color, warm/dry Progress/Results/Core Measures Results/Orders Lab Results Laboratory Tests Test 03/21/22 17:15 03/21/22 18:05 Range/Units White Blood Count 9.2 4.3-11.0 10^3/uL Red Blood Count 4.45 4.30-5.52 10^6/uL Hemoglobin 13.5 13.3-17.7 g/dL Hematocrit 39 L 40-54 % Mean Corpuscular Volume 88 80-99 fL Mean Corpuscular Hemoglobin 30 25-34 pg Mean Corpuscular Hemoglobin Concent 35 32-36 g/dL Red Cell Distribution Width 13.2 10.0-14.5 % Platelet Count 258 130-400 10^3/uL Mean Platelet Volume 9.8 9.0-12.2 fL Immature Granulocyte % (Auto) 0 % Neutrophils (%) (Auto) 80 H 42-75 % Lymphocytes (%) (Auto) 11 L 12-44 % Monocytes (%) (Auto) 8 0-12 % Eosinophils (%) (Auto) 1 0-10 % Basophils (%) (Auto) 0 0-10 % Neutrophils # (Auto) 7.3 1.8-7.8 10^3/uL Lymphocytes # (Auto) 1.0 1.0-4.0 10^3/uL Monocytes # (Auto) 0.7 0.0-1.0 10^3/uL Eosinophils # (Auto) 0.1 0.0-0.3 10^3/uL Basophils # (Auto) 0.0 0.0-0.1 10^3/uL Immature Granulocyte # (Auto) 0.0 0.0-0.1 10^3/uL Sodium Level 132 L 135-145 MMOL/L Potassium Level 4.1 3.6-5.0 MMOL/L Chloride Level 99 98-107 MMOL/L Carbon Dioxide Level 20 L 21-32 MMOL/L Anion Gap 13 5-14 MMOL/L Blood Urea Nitrogen 25 H 7-18 MG/DL Creatinine 1.17 0.60-1.30 MG/DL Estimat Glomerular Filtration Rate 73 BUN/Creatinine Ratio 21 Glucose Level 113 H 70-105 MG/DL Calcium Level 9.8 8.5-10.1 MG/DL Corrected Calcium 9.8 8.5-10.1 MG/DL Total Bilirubin 0.7 0.1-1.0 MG/DL Aspartate Amino Transf (AST/SGOT) 20 5-34 U/L Alanine Aminotransferase (ALT/SGPT) 31 0-55 U/L Alkaline Phosphatase 92 40-136 U/L Total Protein 6.8 6.4-8.2 GM/DL Albumin 4.0 3.2-4.5 GM/DL Lipase 45 8-78 U/L Urine Color ORANGE Urine Clarity CLEAR Urine pH 5.5 5-9 Urine Specific Thomson >=1.030 1.016-1.022 Urine Protein NEGATIVE NEGATIVE Urine Glucose (UA) NEGATIVE NEGATIVE Urine Ketones 1+ H NEGATIVE Urine Nitrite NEGATIVE NEGATIVE Urine Bilirubin NEGATIVE NEGATIVE Urine Urobilinogen 0.2 < = 1.0 MG/DL Urine Leukocyte Esterase NEGATIVE NEGATIVE Urine RBC (Auto) NEGATIVE NEGATIVE Urine RBC NONE /HPF Urine WBC NONE /HPF Urine Squamous Epithelial Cells NONE /HPF Urine Crystals NONE /LPF Urine Bacteria NEGATIVE /HPF Urine Casts NONE /LPF Urine Mucus SMALL H /LPF Urine Culture Indicated NO My Orders Orders - MARK BRADSHAW MANAGER SPANISH Cbc With Automated Diff (03/21/22 17:05) Comprehensive Metabolic Panel (03/21/22 17:05) Lipase (03/21/22 17:05) Urinalysis (03/21/22 17:05) Ed Iv/Invasive Line Start (03/21/22 17:05) Ondansetron Injection (Zofran Injectio (03/21/22 17:15) Ketorolac Injection (Toradol Injection) (03/21/22 17:15) Ns Iv 1000 Ml (Sodium Chloride 0.9%) (03/21/22 17:15) Rx-Promethazine Hcl (Rx-Phenergan Supp) (03/21/22 18:40) Medications Given in ED Current Medications Medications Dose Ordered Sig/Helga Route Start Time Stop Time Status Last Admin Dose Admin Ketorolac Tromethamine 30 mg ONCE ONCE IVP 03/21/22 17:15 03/21/22 17:16 DC 03/21/22 17:18 30 MG Ondansetron HCl 4 mg ONCE ONCE IVP 03/21/22 17:15 03/21/22 17:16 DC 03/21/22 17:18 4 MG Sodium Chloride 1,000 ml @ 0 mls/hr Q0M ONCE IV 03/21/22 17:15 03/21/22 17:16 DC 03/21/22 17:18 999 MLS/HR Vital Signs/I&O 03/21/22 16:55 Temp 36.5 Pulse 92 Resp 20 B/P (MAP) 129/92 (104) Pulse Ox 98 Blood Pressure Mean: 104 Progress Progress Note : Progress Note Pt is nontoxic appearing, in NAD. He has had no episodes of emesis in ED today. Labs reassuring, vitals stable, he is afebrile. Suspect his symptoms are related to cancer treatments. He reports improvement of pain and nausea with toradol, antiemetics, and IVF. Departure Impression Primary Impression: Chemotherapy induced nausea and vomiting Disposition: HOME, SELF-CARE Condition: Improved Departure-Patient Inst. Decision time for Depature: 18:40 Referrals: [facility] [place] ([place]) Primary Care Physician RAQUEL RANDALL APRN (Family) Primary Care Physician Patient Instructions: Nausea and Vomiting With Cancer Treatment Add. Discharge Instructions: Take small, frequent sips of fluids to prevent dehydration. Phenergan as needed for nausea/vomiting. Brook[place] diet. Follow up with any new/worsening concerns All discharge instructions reviewed with patient and/or family. Voiced understanding. MARK BRADSHAW APRN Mar 21, 2022 17:04
[2022-03-21] MEDS ORDERED: NS IV 1000 ML 1,000 ML IV ONE (17:15)
[2022-03-21] MEDS ORDERED: KETOROLAC 30 MG/ML VIAL IVP ONE (17:15)
[2022-03-21] MEDS ORDERED: ONDANSETRON 4 MG/2 ML (SDV) Z0FRAN IVP ONE (17:15)
[2022-03-21 17:28] LABS: BASOPHILS % (AUTO) 0 % (0-10); EOSINOPHILS # (AUTO) 0.1 10^3/uL (0.0-0.3); EOSINOPHILS % (AUTO) 1 % (0-10); HEMATOCRIT 39 % (40-54); HEMOGLOBIN 13.5 g/dL (13.3-17.7); LYMPHOCYTES % (AUTO) 11 % (12-44); MEAN CORPUSCULAR HEMOGLOBIN 30 pg (25-34); MEAN CORPUSCULAR HGB CONC 35 g/dL (32-36); MEAN CORPUSCULAR VOLUME 88 fL (80-99); MEAN PLATELET VOLUME 9.8 fL (9.0-12.2); MONOCYTES # (AUTO) 0.7 10^3/uL (0.0-1.0); MONOCYTES % (AUTO) 8 % (0-12); NEUTROPHILS # (AUTO) 7.3 10^3/uL (1.8-7.8); NEUTROPHILS % (AUTO) 80 % (42-75); PLATELET COUNT 258 10^3/uL (130-400); WHITE BLOOD COUNT 9.2 10^3/uL (4.3-11.0)
[2022-03-21 17:45] LABS: POTASSIUM 4.1 MMOL/L (3.6-5.0)
[2022-03-21 17:47] LABS: CALCIUM 9.8 MG/DL (8.5-10.1)
[2022-03-21 17:48] LABS: TOTAL PROTEIN 6.8 GM/DL (6.4-8.2)
[2022-03-21 17:50] LABS: BILIRUBIN,TOTAL 0.7 MG/DL (0.1-1.0)
[2022-03-21 17:51] LABS: CREATININE SERUM 1.17 MG/DL (0.60-1.30)
[2022-03-21 18:19] LABS: BILIRUBIN,URINE NEGATIVE (NEGATIVE); CLARITY,URINE CLEAR; COLOR,URINE ORANGE; GLUCOSE, URINE (UA) NEGATIVE (NEGATIVE); KETONES,URINE 1+ (NEGATIVE); LEUKOCYTE ESTERASE ,URINE NEGATIVE (NEGATIVE); NITRITE,URINE NEGATIVE (NEGATIVE); PH,URINE 5.5 (5-9); PROTEIN,URINE NEGATIVE (NEGATIVE)
[2022-03-21 18:26] LABS: BACTERIA,URINE NEGATIVE /HPF
[2022-03-21] MEDS ORDERED: RX-PHENERGAN 25 MG SUPP PPK#3 PR STA (18:40)
[2022-03-21 18:50] VITALS: BP 129/92
== END 2022-03-21 18:50 | disposition home or self-care (01) ==
LOC: EDUNIT# 16:48 → ER 16:50
DX: R11.2 Nausea with vomiting, unspecified (principal); T45.1X5A Adverse effect of antineoplastic and immunosuppressive drugs, initial encounter; Z87.891 Personal history of nicotine dependence; Z85.818 Personal history of malignant neoplasm of other sites of lip, oral cavity, and pharynx; Z28.310 Unvaccinated for COVID-19
CPT/HCPCS: 36415; 80053; 81000; 83690; 85025; 99282

== ENCOUNTER 2022-03-30 13:22 | Inpatient (IN) | payer MEDICAID ==
[~2022-03-30] VITALS: Ht 185.4 cm; Wt 82.8 kg
[2022-03-30 13:43] LABS: BASOPHILS % (AUTO) 0 % (0-10); EOSINOPHILS % (AUTO) 0 % (0-10); HEMATOCRIT 31 % (40-54); HEMOGLOBIN 10.6 g/dL (13.3-17.7); LYMPHOCYTES # (AUTO) 0.2 10^3/uL (1.0-4.0); LYMPHOCYTES % (AUTO) 1 % (12-44); MEAN CORPUSCULAR HEMOGLOBIN 31 pg (25-34); MEAN CORPUSCULAR HGB CONC 34 g/dL (32-36); MEAN CORPUSCULAR VOLUME 91 fL (80-99); MEAN PLATELET VOLUME 9.5 fL (9.0-12.2); MONOCYTES # (AUTO) 0.8 10^3/uL (0.0-1.0); MONOCYTES % (AUTO) 4 % (0-12); NEUTROPHILS # (AUTO) 17.9 10^3/uL (1.8-7.8); NEUTROPHILS % (AUTO) 93 % (42-75); PLATELET COUNT 202 10^3/uL (130-400); WHITE BLOOD COUNT 19.2 10^3/uL (4.3-11.0)
[2022-03-30] MEDS ORDERED: NS 100 ML (IVPB) BAG IV ONE (13:45)
[2022-03-30] MEDS ORDERED: HOLD METFORMIN - RECEIVED CONTRAST 20 ML VIAL IV SCH (13:45)
[2022-03-30] MEDS ORDERED: IOHEXOL 350 MG/ML 100 ML (OMNIPAQUE 350) VIAL IV ONE (13:45)
[2022-03-30 14:04] LABS: ALBUMIN 3.1 GM/DL (3.2-4.5); POTASSIUM 4.3 MMOL/L (3.6-5.0)
[2022-03-30 14:08] LABS: BILIRUBIN,TOTAL 0.3 MG/DL (0.1-1.0)
[2022-03-30 14:10] LABS: CREATININE SERUM 0.75 MG/DL (0.60-1.30)
[2022-03-30 14:11] LABS: BAND NEUTROPHILS 0 %; BASOPHILS % (MANUAL) 0 %; EOSINOPHILS % (MANUAL) 0 %; LYMPHOCYTES % (MANUAL) 1 %; MONOCYTES % (MANUAL) 5 %; NEUTROPHILS % (MANUAL) 94 %; RBC MORPH NORMAL
--- NOTE | 2022-03-30 14:11 | Diagnostic Imaging Report ---
EXAMINATION: CT abdomen and pelvis with intravenous contrast. TECHNIQUE: Multiple contiguous axial images were obtained through the abdomen and pelvis after the uneventful administration of intravenous contrast. All CT scans use one or more of the following dose optimizing techniques: automated exposure control, MA and/or KvP adjustment based on patient size and exam type or iterative reconstruction. HISTORY: Left lower quadrant pain. COMPARISON: 01/26/2022. FINDINGS: Limited views of the lower thorax are unremarkable. The liver is normal without focal lesion. There is no biliary ductal dilation. Gallbladder is normal. Pancreas is normal. Spleen is normal. Adrenal glands are normal. The kidneys are normal. There is no hydronephrosis. Urinary bladder is normal. Bowel is normal in caliber without obstruction or inflammation. There is large amount of free air. No drainable fluid collection. Source of perforation is not apparent. There is a percutaneous gastrostomy tube. No abdominal or pelvic lymphadenopathy. Aorta is normal in caliber without aneurysm. There are no suspicious osseous lesions. IMPRESSION: 1. Large amount of free air in the abdomen. No obvious source of leak is identified. No drainable fluid collection. Surgical evaluation recommended. Findings called to the emergency room by Dr. Anguiano on 03/30/2022 at 02:00 p.m. Dictated by: Dictated on workstation # [id number]
--- NOTE | 2022-03-30 14:12 | Diagnostic Imaging Report ---
EXAMINATION: Chest 1 view HISTORY: chest pain COMPARISON: CT abdomen 03/28/2022 FINDINGS: Heart size and pulmonary vasculature are normal. The lungs are clear without consolidation, pleural effusion, or pneumothorax. The osseous structures are intact. Findings of free air under the right hemidiaphragm. Right-sided portacatheter is present. IMPRESSION: 1. No acute radiographic abnormality in the chest. 2. Free air under the right diaphragm. Findings can be seen with hollow viscus perforation or recent surgery. Critical finding. Results communicated to Javier Gotti by Dr. Ryne Chavez at 2:10 PM on 03/30/2022. Dictated by: Dictated on workstation # [id number]
--- NOTE | 2022-03-30 14:42 | ED Abdominal Pain ---
General Chief Complaint: Abdominal/GI Problems Stated Complaint: CHEST AND ABD PAIN Nursing Triage Note: PT TO RM 9 BY EMS WITH C/O ABD PAIN NEAR HIS FEEDING TUBE. PT STATES HE HAS BEEN GETTING CHEMO AND RADATION X4 WEEKS FOR TONSIL CANCER. PT DENIES TAKING ANY PAIN MEDS TODAY Source of Information: Patient Exam Limitations: No Limitations History of Present Illness Date Seen by Provider: Mar 30, 2022 Time Seen by Provider: 13:25 Initial Comments Patient is a 56-year-old male who presents to the emergency department via EMS with acute onset of severe intermittent left-sided abdominal pain that began last night and has persisted today. Patient is currently undergoing chemotherapy and radiation for tonsillar cancer. His last chemotherapy infusion was yesterday. He had a gastrostomy tube placed on 03/[address] Munson. He is currently taking all of his intake orally but has been flushing the G-tube intermittently. He denies any specific pain with flushing the tube or any pain with manipulation of the tube. Denies any fever, nausea/vomiting/diarrhea, urinary symptomology. States the pain is constant but usually mild until it suddenly and episodically worsens. He states after several position changes he can sometimes get the pain to luiza. Patient has a prescription for hydrocodone but has not taken any today. He rates his pain a 2 out of 10 at the time of this interview. He states his last flareup of severe pain was just before he called EMS. Allergies and Home Medications Allergies Coded Allergies: No Known Drug Allergies (Unverified , 03/03/22) Patient Home Medication List Home Medication List Reviewed: Yes Hydrocodone Bit/Acetaminophen (HYDROcodone/APAP 5 MG/325 MG TAB) 1 Tab Tab, 1 TAB PO Q8H PRN for PAIN-MODERATE (5-7) Prescribed by: CARLOS MUNSON on 03/03/22 0928 Lidocaine HCl (Lidocaine HCl Viscous) 15 Ml Solution, 5 ML MM BID PRN for throat pain Prescribed by: DALJIT SOLIMAN on 03/22/21 1756 Lisinopril (Lisinopril) 10 Mg Tablet, 10 MG PO DAILY, (Reported) Entered as Reported by: FELIPE MARTINEZ on 02/25/22 1354 Meloxicam, Submicronized (Meloxicam) 10 Mg Capsule, 15 MG PO DAILY, (Reported) Entered as Reported by: FELIPE MARTINEZ on 02/25/22 1354 Pantoprazole Sodium (Protonix) 40 Mg Tablet.dr, 40 MG PO BID Prescribed by: CARLOS MUNSON on 03/03/22926 Sucralfate (Carafate) 1 Gram Tablet, 1 GM PO ACHS Prescribed by: CARLOS MUNSON on 03/03/22926 Tramadol HCl (Tramadol HCl) 50 Mg Tablet, 50 MG PO Q6H PRN for PAIN Prescribed by: DALJIT SOLIMAN on 03/22/21 947 Review of Systems Review of Systems Constitutional: no symptoms reported EENTM: No Symptoms Reported Respiratory: No Symptoms Reported Cardiovascular: No Symptoms Reported Gastrointestinal: See HPI, Abdominal Pain Genitourinary: See HPI Musculoskeletal: see HPI Past Qapbsoc-Skljfu-Snsrhe Hx Patient Social History Tobacco Use?: No Smoking Status: Former Smoker Substance use?: No Alcohol Use?: No Pt feels they are or have been: No Immunizations Up To Date Tetanus Booster (TDap): Unknown Seasonal Allergies Seasonal Allergies: Yes Past Medical History Surgery/Hospitalization HX: throat cancer port placement, peg tube placement Surgeries: No Respiratory: No Currently Using CPAP: No Currently Using BIPAP: No Cardiac: Yes Hypertension Neurological: No Genitourinary: No Gastrointestinal: Yes Gastroesophageal Reflux Musculoskeletal: No Endocrine: No HEENT: Yes (TONSILLAR CA) Cancer: Yes (TONSILLAR CANCER) Psychosocial: Yes Sleep Difficulties, Anxiety Integumentary: No Blood Disorders: No Physical Exam Vital Signs Vital Signs - First Documented 03/30/22 13:25 Temp 36.5 Pulse 50 Resp 20 B/P (MAP) 112/64 (80) Capillary Refill : Height/Weight/BMI Height: '" Weight: lbs. oz. kg; 25.00 BMI Method: General Appearance: WD/WN, no apparent distress HEENT: PERRL/EOMI, normal ENT inspection, TMs normal, pharynx normal Neck: non-tender, full range of motion, supple, normal inspection Respiratory: chest non-tender, lungs clear, normal breath sounds, no respiratory distress, no accessory muscle use Cardiovascular: regular rate, rhythm Gastrointestinal: normal bowel sounds, soft, tenderness (L sided) Extremities: normal range of motion Neurologic/Psychiatric: no motor/sensory deficits, alert, normal mood/affect, oriented x 3 Skin: normal color, warm/dry Progress/Results/Core Measures Results/Orders Lab Results Laboratory Tests Test 03/30/22 13:27 03/30/22 13:29 Range/Units Prothrombin Time 12.6 12.2-14.7 SEC INR Comment 0.9 0.8-1.4 Activated Partial Thromboplast Time 26 24-35 SEC White Blood Count 19.2 H 4.3-11.0 10^3/uL Red Blood Count 3.45 L 4.30-5.52 10^6/uL Hemoglobin 10.6 L 13.3-17.7 g/dL Hematocrit 31 L 40-54 % Mean Corpuscular Volume 91 80-99 fL Mean Corpuscular Hemoglobin 31 25-34 pg Mean Corpuscular Hemoglobin Concent 34 32-36 g/dL Red Cell Distribution Width 13.8 10.0-14.5 % Platelet Count 202 130-400 10^3/uL Mean Platelet Volume 9.5 9.0-12.2 fL Immature Granulocyte % (Auto) 2 % Neutrophils (%) (Auto) 93 H 42-75 % Lymphocytes (%) (Auto) 1 L 12-44 % Monocytes (%) (Auto) 4 0-12 % Eosinophils (%) (Auto) 0 0-10 % Basophils (%) (Auto) 0 0-10 % Neutrophils # (Auto) 17.9 H 1.8-7.8 10^3/uL Lymphocytes # (Auto) 0.2 L 1.0-4.0 10^3/uL Monocytes # (Auto) 0.8 0.0-1.0 10^3/uL Eosinophils # (Auto) 0.0 0.0-0.3 10^3/uL Basophils # (Auto) 0.0 0.0-0.1 10^3/uL Immature Granulocyte # (Auto) 0.3 H 0.0-0.1 10^3/uL Neutrophils % (Manual) 94 % Lymphocytes % (Manual) 1 % Monocytes % (Manual) 5 % Eosinophils % (Manual) 0 % Basophils % (Manual) 0 % Band Neutrophils 0 % Blood Morphology Comment NORMAL Sodium Level 133 L 135-145 MMOL/L Potassium Level 4.3 3.6-5.0 MMOL/L Chloride Level 107 98-107 MMOL/L Carbon Dioxide Level 19 L 21-32 MMOL/L Anion Gap 7 5-14 MMOL/L Blood Urea Nitrogen 33 H 7-18 MG/DL Creatinine 0.75 0.60-1.30 MG/DL Estimat Glomerular Filtration Rate 105 BUN/Creatinine Ratio 44 Glucose Level 96 70-105 MG/DL Calcium Level 8.0 L 8.5-10.1 MG/DL Corrected Calcium 8.7 8.5-10.1 MG/DL Total Bilirubin 0.3 0.1-1.0 MG/DL Aspartate Amino Transf (AST/SGOT) 21 5-34 U/L Alanine Aminotransferase (ALT/SGPT) 59 H 0-55 U/L Alkaline Phosphatase 65 40-136 U/L Troponin I 0.069 H <0.028 NG/ML Total Protein 5.0 L 6.4-8.2 GM/DL Albumin 3.1 L 3.2-4.5 GM/DL Lipase 21 8-78 U/L My Orders Orders - EVELINE MENARD MANUFACTURING TECHNICIAN Cbc With Automated Diff (03/30/22 13:32) Comprehensive Metabolic Panel (03/30/22 13:32) Troponin I Pily (03/30/22 13:32) Ekg Tracing (03/30/22 13:32) Chest 1 View, Ap/Pa Only (03/30/22 13:32) Ct Abdomen/Pelvis W (03/30/22 13:32) Lipase (03/30/22 13:32) Iohexol Injection (Omnipaque 350 Mg/Ml 1 (03/30/22 13:45) Received Contrast (Hold Metformin- Contr (03/30/22 13:45) Ns (Ivpb) (Sodium Chloride 0.9% Ivpb Bag (03/30/22 13:45) Manual Differential (03/30/22 13:29) Medications Given in ED Current Medications Medications Dose Ordered Sig/Helga Route Start Time Stop Time Status Last Admin Dose Admin Iohexol 100 ml ONCE ONCE IV 03/30/22 13:45 03/30/22 13:46 DC 03/30/22 13:54 80 ML Sodium Chloride 100 ml ONCE ONCE IV 03/30/22 13:45 03/30/22 13:46 DC 03/30/22 13:54 80 ML Vital Signs/I&O 03/30/22 13:25 Temp 36.5 Pulse 50 Resp 20 B/P (MAP) 112/64 (80) Blood Pressure Mean: 80 Progress Progress Note : Progress Note Patient is nontoxic and well-hydrated on exam. Abdominal exam is notable for some left-sided tenderness to palpation without rigidity/distention. Vital signs are overall reassuring. Patient is awake alert answers all questions. G- tube is in place with no surrounding erythema or swelling. No subcutaneous air noted in the tissue surrounding the G-tube site. Laboratory evaluation notable for marked leukocytosis and left shift. EKG notable for sinus bradycardia without acute ischemic change or arrhythmia. Laboratory evaluation also notable for mildly elevated troponin. Chest x-ray notable for free air below the right diaphragm. CT of the abdomen pelvis is also notable for large amount of free air of uncertain source. Spoke with Dr. Munson who recommended patient be admitted and that he would see the patient. Also recommended Zosyn and Diflucan. I spoke with hospitalist who kindly agreed to admit. Did get 2 blood cultures and lactate prior to the initiation of antibiotics. Consults : Consulting Physician: CARLOS MUNSON DO Consults Notes will see patient in consultation once admitted; requested Zosyn and Diflucan Departure Communication (Admissions) Time/Spoke to Admitting Phy: 14:30 Agrees with admission, bridge orders discussed, requested stepdown bed Impression Primary Impression: Sepsis Qualified Codes: A41.9 - Sepsis, unspecified organism Additional Impression: Intra-abdominal free air of unknown etiology Disposition: ADMITTED INPATIENT Condition: Stable Admissions Decision to Admit Reason: Admit from ER (General) Decision to Admit/Date: Mar 30, 2022 Time/Decision to Admit Time: 14:30 Departure-Patient Inst. Referrals: [facility]/ (PCP) Primary Care Physician RAQUEL RANDALL APRN (Family) Primary Care Physician EVELINE MENARD APRN Mar 30, 2022 14:41
[2022-03-30] MEDS ORDERED: NS IV 1000 ML 1,000 ML IV SCH (14:45)
[2022-03-30] MEDS ORDERED: PIPERACILLIN SODIUM/TAZOBACTAM 4.5 GM in NS (IVPB) 100 ML IV ONE (15:00)
--- NOTE | 2022-03-30 15:03 | Consultation - Surgery ---
MATTHEW MENDOZA 03/30/22 1503: History of Present Illness History of Present Illness Patient Consulted On(ev/time) 03/30/22 14:58 Date Seen by Provider: Mar 30, 2022 Time Seen by Provider: 02:40 History of Present Illness Patient seen in consult for free air in peritoneum. 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 Patient states that the pain started around 2100 last night. It has been undulating with progressively worsening peaks of pain. Patient describes the pain as sharp, stabbing, and radiating. Patient states the pain radiates from LLQ up to LUQ and even into chest. Patient associates fever, chills, fatigue, nausea, and dry heaving with this pain. Patient states that movement worsens his pain the most. Patient states that finding the right posi tion improves the pain the most. Patient rates the pain a 7/10 at worse and a 2- 3/10 right now. Allergies and Home Medications Allergies Coded Allergies: No Known Drug Allergies (Unverified , 03/03/22) Patient Home Medication List Home Medication List Reviewed: Yes Hydrocodone Bit/Acetaminophen (HYDROcodone/APAP 5 MG/325 MG TAB) 1 Tab Tab, 1 TAB PO Q8H PRN for PAIN-MODERATE (5-7) Prescribed by: CARLOS MUNSON on 03/03/22927 Lidocaine HCl (Lidocaine HCl Viscous) 15 Ml Solution, 5 ML MM BID PRN for throat pain Prescribed by: DALJIT SOLIMAN on 03/22/21 1756 Lisinopril (Lisinopril) 10 Mg Tablet, 10 MG PO DAILY, (Reported) Entered as Reported by: FELIPE MARTINEZ on 02/25/22 135 Meloxicam, Submicronized (Meloxicam) 10 Mg Capsule, 15 MG PO DAILY, (Reported) Entered as Reported by: FELIPE MARTINEZ on 02/25/22 135 Pantoprazole Sodium (Protonix) 40 Mg Tablet.dr, 40 MG PO BID Prescribed by: CARLOS MUNSON on 03/03/22926 Sucralfate (Carafate) 1 Gram Tablet, 1 GM PO ACHS Prescribed by: CARLOS MUNSON on 10/26/22 0927 Tramadol HCl (Tramadol HCl) 50 Mg Tablet, 50 MG PO Q6H PRN for PAIN Prescribed by: DALJIT SOLIMAN on 03/22/21 4188 Past Ileufpz-Gywvoz-Fafewx Hx Patient Social History Smoking Status: Former Smoker (0.5-1 PPD Q>30yrs) Former Smoker, Quit: Feb 17, 2022 Type Used: Cigarettes 2nd Hand Smoke Exposure: Yes Recent Hopitalizations: No Alcohol Use?: No Have you traveled recently?: No Immunizations Up To Date Tetanus Booster (TDap): Unknown Date of Influenza Vaccine: Feb 06, 2021 Seasonal Allergies Seasonal Allergies: Yes Surgeries History of Surgeries: Yes (Port placement and feeding tube placement ) Respiratory History of Respiratory Disorde: No Cardiovascular History of Cardiac Disorders: Yes Cardiac Disorders: Hypertension Neurological History of Neurological Disord: No Genitourinary History of Genitourinary Disor: No Gastrointestinal History of Gastrointestinal Di: Yes Gastrointestinal Disorders: Gastroesophageal Reflux Musculoskeletal History of Musculoskeletal Dis: No Endocrine History of Endocrine Disorders: No HEENT History of HEENT Disorders: Yes (TONSILLAR CA) Cancer History of Cancer: Yes (TONSILLAR CANCER) Psychosocial History of Psychiatric Problem: Yes Behavioral Health Disorders: Sleep Difficulties, Anxiety Integumentary History of Skin or Integumenta: No Blood Transfusions History of Blood Disorders: No Family Medical History Significant Family History: Diabetes Review of Systems-General Constitutional: chills, fever EENTM: No blurred vision, No double vision Respiratory: No cough; short of breath (viji. with increasing pain ) Cardiovascular: chest pain (see hpi. radiates to chest); No palpitations Gastrointestinal: LUQ, LLQ; No constipation, No diarrhea; nausea; No vomiting Genitourinary: No decreased output, No discharge, No dysuria, No hematuria, No incontinence Musculoskeletal: No muscle pain, No muscle cramps Skin: No change in color, No pruritus, No rash Psychiatric/Neurological: Denies Anxiety, Denies Depressed Physical Exam-General Problems Physical Exam Vital Signs Vital Signs - First Documented 03/30/22 13:25 Temp 36.5 Pulse 50 Resp 20 B/P (MAP) 112/64 (80) Capillary Refill : General Appearance: no apparent distress, other (chronically ill) HEENT: PERRL/EOMI Neck: non-tender, supple Respiratory: chest non-tender, lungs clear, normal breath sounds, no respiratory distress, no accessory muscle use Cardiovascular: bradycardia (Regular rhythm. 40's while i was in room. Patient endorses light headed) Gastrointestinal: soft; No distended, No guarding, No rebound; tenderness (to deep palpation LLQ and LUQ) Rectal: deferred Extremities: non-tender, no pedal edema, no calf tenderness Neurologic/Psychiatric: alert, normal mood/affect, oriented x 3 Skin: normal color, warm/dry Data Review Labs Laboratory Tests 03/30/22 13:29: White Blood Count 19.2H, Red Blood Count 3.45L, Hemoglobin 10.6L, Hematocrit 31L , Mean Corpuscular Volume 91, Mean Corpuscular Hemoglobin 31, Mean Corpuscular Hemoglobin Concent 34, Red Cell Distribution Width 13.8, Platelet Count 202, Mean Platelet Volume 9.5, Immature Granulocyte % (Auto) 2, Neutrophils (%) (Auto) 93H, Lymphocytes (%) (Auto) 1L, Monocytes (%) (Auto) 4, Eosinophils (%) (Auto) 0, Basophils (%) (Auto) 0, Neutrophils # (Auto) 17.9H, Lymphocytes # (Auto) 0.2L, Monocytes # (Auto) 0.8, Eosinophils # (Auto) 0.0, Basophils # (Auto) 0.0, Immature Granulocyte # (Auto) 0.3H, Neutrophils % (Manual) 94, Lymphocytes % (Manual) 1, Monocytes % (Manual) 5, Eosinophils % (Manual) 0, Basophils % (Manual) 0, Band Neutrophils 0, Blood Morphology Comment NORMAL, Sodium Level 133L, Potassium Level 4.3, Chloride Level 107, Carbon Dioxide Level 19L, Anion Gap 7, Blood Urea Nitrogen 33H, Creatinine 0.75, Estimat Glomerular Filtration Rate 105, BUN/Creatinine Ratio 44, Glucose Level 96, Calcium Level 8.0L, Corrected Calcium 8.7, Total Bilirubin 0.3, Aspartate Amino Transf (AST/SGOT) 21, Alanine Aminotransferase (ALT/SGPT) 59H, Alkaline Phosphatase 65, Troponin I 0.069H, Total Protein 5.0L, Albumin 3.1L, Lipase 21 Radiology [facility]. [place], [place] NAME: DAVID LÓPEZ [facility] REC#: [id number] PT STATUS: REG ER : 1965 PHYSICIAN: JAVIER GOTTI APRN ADMIT DATE: 03/30/22/ER Signed Date of Exam:03/30/22 CHEST 1 VIEW, AP/PA ONLY [facility], [place] NAME: DAVID LÓPEZ [facility] REC#: [id number] PT STATUS: REG ER : 1965 PHYSICIAN: JAVIER GOTTI APRN ADMIT DATE: 03/30/22/ER Draft Date of Exam:03/30/22 CT ABDOMEN/PELVIS W EXAMINATION: CT abdomen and pelvis with intravenous contrast. TECHNIQUE: Multiple contiguous axial images were obtained through the abdomen and pelvis after the uneventful administration of intravenous contrast. All CT scans use one or more of the following dose optimizing techniques: automated exposure control, MA and/or KvP adjustment based on patient size and exam type or iterative reconstruction. HISTORY: Left lower quadrant pain. COMPARISON: 01/26/2022. FINDINGS: Limited views of the lower thorax are unremarkable. The liver is normal without focal lesion. There is no biliary ductal dilation. Gallbladder is normal. Pancreas is normal. Spleen is normal. Adrenal glands are normal. The kidneys are normal. There is no hydronephrosis. Urinary bladder is normal. Bowel is normal in caliber without obstruction or inflammation. There is large amount of free air. No drainable fluid collection. Source of perforation is not apparent. There is a percutaneous gastrostomy tube. No abdominal or pelvic lymphadenopathy. Aorta is normal in caliber without aneurysm. There are no suspicious osseous lesions. IMPRESSION: 1. Large amount of free air in the abdomen. No obvious source of leak is identified. No drainable fluid collection. Surgical evaluation recommended. Findings called to the emergency room by Dr. Daley on 03/30/2022 at 02:00 p.m. Dictated on workstation # [id number] Dict: 03/30/22 1359 Trans: 03/30/22 1410 [id number] Interpreted by: DANE DALEY MD Electronically signed by: EXAMINATION: Chest 1 view HISTORY: chest pain COMPARISON: CT abdomen 03/28/2022 FINDINGS: Heart size and pulmonary vasculature are normal. The lungs are clear without consolidation, pleural effusion, or pneumothorax. The osseous structures are intact. Findings of free air under the right hemidiaphragm. Right-sided portacatheter is present. IMPRESSION: 1. No acute radiographic abnormality in the chest. 2. Free air under the right diaphragm. Findings can be seen with hollow viscus perforation or recent surgery. Critical finding. Results communicated to Javier Gotti by Dr. Ryne See at 2:10 PM on 03/30/2022. Dictated by: Dictated on workstation # [id number] Dict: 03/30/22 1405 Trans: 03/30/22 1438 [facility] [id number] Interpreted by: JAMES SEE DO Electronically signed by: JAMES SEE DO 03/30/22 1438 Assessment/Plan Assessment/Plan Assessment/Plan Pneumoperitoneum Tonsil Cancer - 4x doses of Chemotherapy + Radiation Immunosuppression Leukocytosis Elevated Troponin Bradycardia Hypertension Plan IV Zosyn, Diflucan, NPO, IVF, Pain regimen, Anti-emetics. Patient at increased risk for severe infections and sepsis, trend labs and monitor clinical status closely Given patient's clinical condition and underlying illness and immunologic state, would consider exploratory laparoscopy with evacuation of air, with possible laparotomy and all other indicated procedures depending on findings of laparoscopy. Discussed possibility of this with patient and he stated that he would be open to whatever was necessary, if it relieved his pain. However, when discussing with patient want that could entail if possible bowel trauma or perforation was found, patient was more hesitant, and stated we "could cross that bridge if we get there". CARLOS MUNSON DO 03/30/22 1637: History of Present Illness History of Present Illness Time Seen by Provider: 15:55 History of Present Illness Surgery asked to consult regarding pneumoperitoneum. Pt stated last night he had pain, "I thought it was just because I ate too much". Pain is mainly on the left side. He is actually hungry and wants to eat, but more wants to drink because "my mouth is super dry". Allergies and Home Medications Allergies Coded Allergies: No Known Drug Allergies (Unverified , 03/03/22) Patient Home Medication List Home Medication List Reviewed: Yes Hydrocodone Bit/Acetaminophen (HYDROcodone/APAP 5 MG/325 MG TAB) 1 Tab Tab, 1 TAB PO Q8H PRN for PAIN-MODERATE (5-7) Prescribed by: CARLOS MUNSON on 03/03/22927 Lidocaine HCl (Lidocaine HCl Viscous) 15 Ml Solution, 5 ML MM BID PRN for throat pain Prescribed by: DALJIT SOLIMAN on 03/22/211755 Lisinopril (Lisinopril) 10 Mg Tablet, 10 MG PO DAILY, (Reported) Entered as Reported by: FELIPE MARTINEZ on 02/25/22 135 Meloxicam, Submicronized (Meloxicam) 10 Mg Capsule, 15 MG PO DAILY, (Reported) Entered as Reported by: FELIPE MARTINEZ on 02/25/221353 Pantoprazole Sodium (Protonix) 40 Mg Tablet.dr, 40 MG PO BID Prescribed by: CARLOS MUNSON on 03/03/22926 Sucralfate (Carafate) 1 Gram Tablet, 1 GM PO ACHS Prescribed by: CARLOS MUNSON on 03/03/22926 Tramadol HCl (Tramadol HCl) 50 Mg Tablet, 50 MG PO Q6H PRN for PAIN Prescribed by: DALJIT SOLIMAN on 03/22/211755 Past Qulkqfc-Gorrff-Ecrgec Hx Patient Social History Smoking Status: Former Smoker (0.5-1 PPD Q>30yrs) Surgeries History of Surgeries: Yes (Port placement and feeding tube placement ) Respiratory History of Respiratory Disorde: No Cardiovascular History of Cardiac Disorders: Yes Cardiac Disorders: Hypertension Neurological History of Neurological Disord: No Genitourinary History of Genitourinary Disor: No Gastrointestinal Gastrointestinal Disorders: Gastroesophageal Reflux Musculoskeletal History of Musculoskeletal Dis: No Endocrine History of Endocrine Disorders: No HEENT HEENT Disorders: Epiglottis Cancer History of Cancer: Yes Psychosocial History of Psychiatric Problem: No Family Medical History Significant Family History: Diabetes Review of Systems-General Constitutional: chills, fever EENTM: No blurred vision, No double vision Respiratory: No cough; short of breath (viji. with increasing pain ) Cardiovascular: chest pain (see hpi. radiates to chest); No palpitations Gastrointestinal: LUQ, LLQ; No constipation, No diarrhea; nausea; No vomiting Genitourinary: No decreased output, No discharge, No dysuria, No hematuria, No incontinence Musculoskeletal: No muscle pain, No muscle cramps Skin: No change in color, No pruritus, No rash Psychiatric/Neurological: Denies Anxiety, Denies Depressed Physical Exam-General Problems Physical Exam General Appearance: no apparent distress, other (chronically ill) Eyes: Bilateral Eye PERRL, Bilateral Eye EOMI HEENT: pharynx normal; No scleral icterus (R), No scleral icterus (L); other (poor dentition) Neck: non-tender, supple Respiratory: chest non-tender, lungs clear, normal breath sounds, no respiratory distress, no accessory muscle use Cardiovascular: no murmur, bradycardia (Regular rhythm. 40's while i was in room. Patient endorses light headed) Gastrointestinal: soft; No distended; guarding (mild voluntary); No rebound; tenderness (to deep palpation LLQ and LUQ) Rectal: deferred Extremities: non-tender, no pedal edema, no calf tenderness Neurologic/Psychiatric: alert, normal mood/affect, oriented x 3 Skin: normal color, warm/dry Assessment/Plan Assessment/Plan Assessment/Plan Pneumoperitoneum Tonsil Cancer - 4x doses of Chemotherapy + Radiation Immunosuppression Leukocytosis Elevated Troponin Bradycardia Hypertension Plan IV Zosyn, Diflucan, NPO, IVF, Pain regimen, Anti-emetics. Patient at increased risk for severe infections and sepsis, trend labs and monitor clinical status closely Given patient's clinical condition and underlying illness and immunologic state, would consider exploratory laparoscopy with evacuation of air, with possible laparotomy and all other indicated procedures depending on findings of laparoscopy. Discussed possibility of this with patient and he stated that he would be open to whatever was necessary, if it relieved his pain. However, when discussing with patient want that could entail if possible bowel trauma or perforation was found, patient was more hesitant, and stated we "could cross that bridge if we get there". I went over the CT with Dr. Mixon and discussed the case with Dr. Adams. I cannot figure out why he has a pneumoperitoneum; the most obvious source is the PEG. However, the CT appears to show gastric wall adhered nicely to the abominal wall/peritoneum. I think the best thing to do is monitor his abdominal exam, labs and may do contrast through PEG to see if there is a leak. May wind up having to do a Laparoscopy to get diagnosis. For now, there is no indication to marquis to the OR. Pt ok to have some ice chips. Supervisory-Addendum Brief Verification & Attestation Participated in pt care: history, MDM, physical Personally performed: exam, history, MDM, supervision of care Care discussed with: Medical Student Procedures: n/a Verification and Attestation of Medical Student E/M Service A medical student performed and documented this service. I then reviewed and verified all information documented by the medical student and made modifications to such information, when appropriate. I personally performed a physical exam, medical decision making and then discussed any differences between the notes and made revisions as necessary to create one note. Carlos Munson , 03/30/22 , 16:42 MATTHEW MENDOZA Mar 30, 2022 15:03 CARLOS MUSNON DO Mar 30, 2022 16:37
[2022-03-30 15:27] LABS: INR 0.9 (0.8-1.4); PROTHROMBIN TIME PATIENT 12.6 SEC (12.2-14.7)
[2022-03-30 15:50] VITALS: BP 121/62
[2022-03-30] MEDS ORDERED: FLU QUADRIvalent (6 months+) 60 mcg/0.5 ml 2022-23 (Fluzone) IM ONE (17:00)
[2022-03-30] MEDS: FLUCONAZOLE 200 MG/100 ML 200 ML IV SCH (17:58)
[2022-03-30] MEDS: NS IV 1000 ML 1,000 ML IV SCH (17:58)
[2022-03-30] MEDS: PROMETHAZINE INJ 25 MG/ML (PHENERGAN) AMP IVP PRN (18:10)
[2022-03-30 20:00] VITALS: BP 99/60
[2022-03-30] MEDS: PIPERACILLIN SODIUM/TAZOBACTAM 4.5 GM in NS (IVPB) 100 ML IV SCH (22:25)
[2022-03-31] VITALS (8 sets, daily range): BP systolic 101–126; BP diastolic 60–73
[2022-03-31] MEDS: fentaNYL INJ 100 MCG/2 ML AMP IVP PRN ×4 (00:20→15:24)
[2022-03-31] MEDS: PIPERACILLIN SODIUM/TAZOBACTAM 4.5 GM in NS (IVPB) 100 ML IV SCH ×3 (05:16→21:07)
[2022-03-31] MEDS: NS IV 1000 ML 1,000 ML IV SCH ×2 (05:56→14:42)
[2022-03-31 06:22] LABS: CALCIUM 8.5 MG/DL (8.5-10.1); CREATININE SERUM 0.95 MG/DL (0.60-1.30); POTASSIUM 4.9 MMOL/L (3.6-5.0)
--- NOTE | 2022-03-31 07:43 | Progress Note - Surgery ---
MATTHEW MENDOZA 03/31/22 0743: Subjective Date Seen by a Provider: Mar 31, 2022 Time Seen by a Provider: 07:00 Subjective/Events-last exam Patient resting comfortably in bed. States that his pain has been stable overnight. Rates his pain a 2/3-10 right now. Feels like he is improved from yesterday. Review of Systems General: No Chills, No Night Sweats HEENT: No Head Aches, No Visual Changes Pulmonary: No Dyspnea, No Cough Cardiovascular: No: Chest Pain, Palpitations, Lt Headedness (t) Gastrointestinal: No: Nausea, Vomiting, Abdominal Pain, Diarrhea, Constipation Genitourinary: No Dysuria, No Frequency Neurological: No: Weakness, Numbness Focused Exam Lactate Level 03/30/22 15:08: Lactic Acid Level 1.72 Objective Exam Vital Signs Date Time Temp Pulse Resp B/P (MAP) Pulse Ox O2 Delivery O2 Flow Rate FiO2 03/31/22 03:29 36.6 45 14 101/61 (74) 98 Room Air 03/31/22 01:00 50 03/31/22 00:41 36.8 54 16 113/60 (77) 94 Room Air 03/30/22 20:29 97 Room Air 03/30/22 20:00 36.1 42 15 97 Room Air 03/30/22 20:00 42 10 99/60 (73) 96 Room Air 03/30/22 19:00 47 03/30/22 16:42 38 03/30/22 16:40 Room Air 03/30/22 15:50 36.1 43 12 121/62 (81) 100 Room Air 03/30/22 15:34 36.5 50 20 116/63 03/30/22 13:25 36.5 50 20 112/64 (80) I & O 03/31/22 07:00 Intake Total 450 ml Output Total 1400 ml Balance -950 ml Capillary Refill : General Appearance: No Apparent Distress, WD/WN Neck: Non Tender, Supple Respiratory: Chest Non Tender, Lungs Clear, Normal Breath Sounds, No Accessory Muscle Use, No Respiratory Distress Cardiovascular: Normal Peripheral Pulses, Bradycardia (asymptomatic, regular rhythm) Gastrointestinal: soft; No distended, No rebound; tenderness (to deep palpation LUQ only, improvement from yesterday ) Extremity: Non Tender, No Calf Tenderness, No Pedal Edema Neurologic/Psychiatric: Oriented x3, Normal Mood/Affect Skin: Normal Color, Warm/Dry Results Lab Laboratory Tests 03/30/22 13:27: Prothrombin Time 12.6, INR Comment 0.9, Activated Partial Thromboplast Time 26 03/30/22 13:29: White Blood Count 19.2H, Red Blood Count 3.45L, Hemoglobin 10.6L, Hematocrit 31L , Mean Corpuscular Volume 91, Mean Corpuscular Hemoglobin 31, Mean Corpuscular Hemoglobin Concent 34, Red Cell Distribution Width 13.8, Platelet Count 202, Mean Platelet Volume 9.5, Immature Granulocyte % (Auto) 2, Neutrophils (%) (Auto) 93H, Lymphocytes (%) (Auto) 1L, Monocytes (%) (Auto) 4, Eosinophils (%) (Auto) 0, Basophils (%) (Auto) 0, Neutrophils # (Auto) 17.9H, Lymphocytes # (Auto) 0.2L, Monocytes # (Auto) 0.8, Eosinophils # (Auto) 0.0, Basophils # (Auto) 0.0, Immature Granulocyte # (Auto) 0.3H, Neutrophils % (Manual) 94, Lymphocytes % (Manual) 1, Monocytes % (Manual) 5, Eosinophils % (Manual) 0, Basophils % (Manual) 0, Band Neutrophils 0, Blood Morphology Comment NORMAL, Sodium Level 133L, Potassium Level 4.3, Chloride Level 107, Carbon Dioxide Level 19L, Anion Gap 7, Blood Urea Nitrogen 33H, Creatinine 0.75, Estimat Glomerular Filtration Rate 105, BUN/Creatinine Ratio 44, Glucose Level 96, Calcium Level 8.0L, Corrected Calcium 8.7, Total Bilirubin 0.3, Aspartate Amino Transf (AST/SGOT) 21, Alanine Aminotransferase (ALT/SGPT) 59H, Alkaline Phosphatase 65, Troponin I 0.069H, Total Protein 5.0L, Albumin 3.1L, Lipase 21 03/30/22 15:08: Lactic Acid Level 1.72 03/31/22 05:39: Sodium Level 136, Potassium Level 4.9, Chloride Level 107, Carbon Dioxide Level 18L, Anion Gap 11, Blood Urea Nitrogen 37H, Creatinine 0.95, Estimat Glomerular Filtration Rate 93, BUN/Creatinine Ratio 39, Glucose Level 99, Calcium Level 8.5 Assessment/Plan Assessment/Plan Assessment/Plan Pneumoperitoneum Tonsil Cancer - 4x doses of Chemotherapy + Radiation Immunosuppression Leukocytosis Elevated Troponin Bradycardia Hypertension Plan IV Zosyn, Diflucan, NPO, IVF, Pain regimen, Anti-emetics. Patient at increased risk for severe infections and sepsis, trend labs and monitor clinical status closely I went over the CT with Dr. Mixon and discussed the case with Dr. Adams. I cannot figure out why he has a pneumoperitoneum; the most obvious source is the PEG. However, the CT appears to show gastric wall adhered nicely to the abominal wall/peritoneum. Patient's pain is improving. May consider contrast imaging through PEG tube today to confirm no leak from the PEG tube and also look at air level to see if there is worsening or improvement. Will continue to monitor closely. If sudden worsening in pain or clinical status will take skylar ent back for exploratory laparoscopy. Patient prefers conservative measures at this time. However, a conversation was had with the patient yesterday that if things suddenly worsen surgery may be unavoidable. Patient was understanding at that time. TANG MUNSON DO 03/31/22 1016: Subjective Time Seen by a Provider: 08:25 Subjective/Events-last exam Pt seen and examined, stated he was doing fine with no abdominal pain until right after his radiation treatment. States no it is rumbling and feels gas pain. He does not appear to be in any distress. Review of Systems General: No Chills, No Night Sweats Pulmonary: No Dyspnea, No Cough Cardiovascular: No: Chest Pain, Palpitations Gastrointestinal: Abdominal Pain (very minimal); No: Nausea, Vomiting Genitourinary: No Dysuria, No Frequency Objective Exam General Appearance: No Apparent Distress, WD/WN Respiratory: Chest Non Tender, Lungs Clear, Normal Breath Sounds, No Accessory Muscle Use, No Respiratory Distress Cardiovascular: No Murmur, Normal Peripheral Pulses, Bradycardia (asymptomatic, regular rhythm) Gastrointestinal: soft; No distended, No rebound; tenderness (to deep palpation LUQ only, improvement from yesterday ) Extremity: Non Tender, No Calf Tenderness Neurologic/Psychiatric: Oriented x3, Normal Mood/Affect Assessment/Plan Assessment/Plan Assessment/Plan Pneumoperitoneum Tonsil Cancer - 4x doses of Chemotherapy + Radiation Immunosuppression Leukocytosis Elevated Troponin Bradycardia Hypertension Plan IV Zosyn, Diflucan, NPO, IVF, Pain regimen, Anti-emetics. Patient at increased risk for severe infections and sepsis, trend labs and monitor clinical status closely Will order contrast imaging through PEG tube today to look for leak from the PEG tube and also look at air level to see if there is worsening or improvement. Will continue to monitor closely. If sudden worsening in pain or clinical status will take patient back for exploratory laparoscopy. Patient prefers conservative measures at this time. However, a conversation was had with the patient yesterday that if things suddenly worsen surgery may be unavoidable. Patient was understanding at that time. Supervisory-Addendum Brief Verification & Attestation Participated in pt care: history, MDM, physical Personally performed: exam, history, MDM, supervision of care Care discussed with: Medical Student Procedures: n/a Verification and Attestation of Medical Student E/M Service A medical student performed and documented this service. I then reviewed and verified all information documented by the medical student and made modifications to such information, when appropriate. I personally performed a physical exam, medical decision making and then discussed any differences between the notes and made revisions as necessary to create one note. Tang Munson , 03/31/22 , 10:16 MATTHEW MENDOZA Mar 31, 2022 07:43 TANG MUNSON DO Mar 31, 2022 10:16
[2022-03-31 07:56] LABS: BASOPHILS % (AUTO) 0 % (0-10); EOSINOPHILS % (AUTO) 0 % (0-10); HEMATOCRIT 32 % (40-54); HEMOGLOBIN 10.7 g/dL (13.3-17.7); LYMPHOCYTES # (AUTO) 0.2 10^3/uL (1.0-4.0); LYMPHOCYTES % (AUTO) 2 % (12-44); MEAN CORPUSCULAR HEMOGLOBIN 31 pg (25-34); MEAN CORPUSCULAR HGB CONC 33 g/dL (32-36); MEAN CORPUSCULAR VOLUME 91 fL (80-99); MEAN PLATELET VOLUME 9.8 fL (9.0-12.2); MONOCYTES # (AUTO) 0.6 10^3/uL (0.0-1.0); MONOCYTES % (AUTO) 4 % (0-12); NEUTROPHILS # (AUTO) 12.1 10^3/uL (1.8-7.8); NEUTROPHILS % (AUTO) 93 % (42-75); PLATELET COUNT 181 10^3/uL (130-400); WHITE BLOOD COUNT 13.1 10^3/uL (4.3-11.0)
[2022-03-31] MEDS: PROMETHAZINE INJ 25 MG/ML (PHENERGAN) AMP IVP PRN ×2 (08:14→14:42)
[2022-03-31] MEDS ORDERED: ONDA-106 PO (10:01)
[2022-03-31] MEDS ORDERED: DEXA4TAB PO (10:01)
[2022-03-31] MEDS ORDERED: DOCU-143 PO (10:01)
[2022-03-31] MEDS ORDERED: MELO15TA39 PO (10:01)
[2022-03-31] MEDS ORDERED: ACHD5005 PO (10:01)
[2022-03-31] MEDS ORDERED: LIDO20SO23 MM (10:01)
[2022-03-31] MEDS ORDERED: DIATRIZOATE MEGLUM/SODIUM 37% 120 ML (GASTROGRAFIN) NG ONE (13:00)
--- NOTE | 2022-03-31 13:30 | Consultation-Cardiology ---
HPI-Cardiology Cardiology Consultation: Date of Consultation 03/31/22 Time Seen by a Provider: 09:15 Date of Admission Attending Physician [facility] Admitting Physician Admitting Physician: Belia Adams MD Attending Physician: Medina Chiang DO Consulting Physician BRITNI CHENG MD, MA, FACP, FACC, [facility] [facility] HPI: Chief Complaint: Abd pain 56 yo man who has been admitted to the [facility] service for abdominal pain that has been persistent for over a day. He has a h/o tonsillar cance and h/o port and PEG placement. PEG placement in late Feb 2022 was complicated by pneumoperitonium. Pt reports gen malaise, poor appetite. Denies cp or palp. Does note dizziness. Had one episode of near-syncope/syncope while getting up fast about two weeks ago. Has continued to have some postural symptoms. Denies swelling. Notes nausea and retching. His current abd pain is worse with posture and position changes Review of Systems-Cardiology Review of Systems Constitutional: As described under HPI Eyes: No vision change Ears/Nose/Throat: No ear discharge, No nasal drainage, No recent hearing loss Respiratory: As described under HPI Cardiovascular: As described under HPI Gastrointestinal: As described under HPI Genitourinary: No dysuria, No hematuria, No urine frequency changes Musculoskeletal: back pain (chronic) Skin: No ulcerations Psychiatric/Neurological: As described under HPI; No seizure, No focal weakness Hematologic: No bleeding abnormalities [id number]-[id number]-Ookytb Hx Patient Social History Smoking Status: Former Smoker (0.5-1 PPD Q>30yrs) 2nd Hand Smoke Exposure: Yes Have you traveled recently?: No Alcohol Use?: No Pt feels they are or have been: No Immunizations Up To Date Tetanus Booster (TDap): Unknown Date of Influenza Vaccine: Feb 06, 2021 Past Medical History PMH As described under Assessment. Family Medical History Family Medical History: He does not report fam h/o early CAD or SCD Allergies and Home Medications Allergies Coded Allergies: No Known Drug Allergies (Unverified , 03/03/22) Patient Home Medication List Home Medication List Reviewed: Yes Dexamethasone (Dexamethasone) 4 Mg Tablet, 4 MG PO BID, (Reported) Entered as Reported by: AMAURI DE PAZ on 03/31/22 1001 Last Action: Reviewed Docusate Sodium (Colace) 100 Mg Capsule, 100 MG PO DAILY, (Reported) Entered as Reported by: AMAURI DE PAZ on 03/31/22 100 Last Action: Reviewed Hydrocodone/Acetaminophen (Hydrocodone-Acetamin 5-325 mg) 5 Mg-325 Mg Tablet, 1 TAB PO Q6H PRN for PAIN-MODERATE (5-7), (Reported) Entered as Reported by: AMAURI DE PAZ on 03/31/22 100 Last Action: Reviewed Lidocaine HCl (Lidocaine HCl Viscous) 2 % Solution, 5 ML MM BID PRN for THROAT PAIN, (Reported) Entered as Reported by: AMAURI DE PAZ on 03/31/221000 Last Action: Reviewed Lisinopril (Lisinopril) 10 Mg Tablet, 10 MG PO DAILY, (Reported) Entered as Reported by: FELIPE MARTINEZ on 02/25/22 9023 Last Action: Reviewed Meloxicam (Meloxicam) 15 Mg Tablet, 15 MG PO DAILY, (Reported) Entered as Reported by: AMAURI DE PAZ on 03/31/221000 Last Action: Reviewed Ondansetron HCl (Ondansetron HCl) 8 Mg Tablet, 8 MG PO BID, (Reported) Entered as Reported by: AMAURI DE PAZ on 03/31/221000 Last Action: Reviewed Discontinued Medications Hydrocodone Bit/Acetaminophen (HYDROcodone/APAP 5 MG/325 MG TAB) 1 Tab Tab, 1 TAB PO Q8H PRN for PAIN-MODERATE (5-7) Discontinued Reason: Duplicate Order Prescribed by: CARLOS MUNSON on 03/03/2248 Last Action: Discontinued Lidocaine HCl (Lidocaine HCl Viscous) 15 Ml Solution, 5 ML MM BID PRN for throat pain Discontinued Reason: No Longer Taking Prescribed by: DALJIT SOLIMAN on 03/22/21 2633 Last Action: Discontinued Meloxicam, Submicronized (Meloxicam) 10 Mg Capsule, 15 MG PO DAILY, (Reported) Discontinued Reason: Duplicate Order Entered as Reported by: FELIPE MARTINEZ on 02/25/22 2285 Last Action: Discontinued Pantoprazole Sodium (Protonix) 40 Mg Tablet.dr, 40 MG PO BID Discontinued Reason: No Longer Taking Prescribed by: CARLOS MUNSON on 03/03/22 4661 Last Action: Discontinued Sucralfate (Carafate) 1 Gram Tablet, 1 GM PO ACHS Discontinued Reason: No Longer Taking Prescribed by: CARLOS MUNSON on 03/03/22 0908 Last Action: Discontinued Tramadol HCl (Tramadol HCl) 50 Mg Tablet, 50 MG PO Q6H PRN for PAIN Discontinued Reason: No Longer Taking Prescribed by: DALJIT SOLIMAN on 03/22/21 881 Last Action: Discontinued Physical Exam-Cardiology Physical Exam Vital Signs/I&O 03/31/22 03/31/22 03/31/22 03/31/22 03:29 07:00 08:00 08:18 Temp 36.6 36.7 Pulse 45 45 44 57 Resp 14 14 18 B/P (MAP) 101/61 (74) 108/65 (79) 123/68 (86) Pulse Ox 98 96 98 O2 Delivery Room Air Room Air Room Air 03/31/22 03/31/22 03/31/22 08:35 11:58 13:00 Temp 36.5 Pulse 46 46 Resp 16 B/P (MAP) 108/71 (83) Pulse Ox 98 96 O2 Delivery Room Air Room Air 03/31/22 00:00 Intake Total 300 ml Output Total 450 ml Balance -150 ml Capillary Refill : Constitutional: AAO x 3, well-developed, well-nourished HEENT: EOMI, hearing is well preserved; No xanthelasmas are seen Neck: carotid pulses are 2 + bilaterally Respiratory: No accessory muscle use; other (good bilat air entry that is diminished at the bases) Cardiovascular: regular rate-rhythm, bradycardia, S1 and S2, systolic murmur (soft MASSIEL at card base) Gastrointestinal: other (mild gen tenderness w/o rebound or guarding, PEG tube close midline in LUQ, audible bs) Extremities: No clubbing, No cyanosis, No significant edema Neurologic/Psychiatric: oriented x 3, other (moves all limbs equally) Skin: No rash on exposed areas, No ulcerations on exposed areas Data Review Labs Laboratory Tests 03/30/22 15:08: Lactic Acid Level 1.72 03/31/22 05:29: White Blood Count 13.1H, Red Blood Count 3.51L, Hemoglobin 10.7L, Hematocrit 32L , Mean Corpuscular Volume 91, Mean Corpuscular Hemoglobin 31, Mean Corpuscular Hemoglobin Concent 33, Red Cell Distribution Width 14.4, Platelet Count 181, Mean Platelet Volume 9.8, Immature Granulocyte % (Auto) 1, Neutrophils (%) (Auto) 93H, Lymphocytes (%) (Auto) 2L, Monocytes (%) (Auto) 4, Eosinophils (%) (Auto) 0, Basophils (%) (Auto) 0, Neutrophils # (Auto) 12.1H, Lymphocytes # (Auto) 0.2L, Monocytes # (Auto) 0.6, Eosinophils # (Auto) 0.0, Basophils # (Auto) 0.0, Immature Granulocyte # (Auto) 0.1, Troponin I 0.056H 03/31/22 05:39: Sodium Level 136, Potassium Level 4.9, Chloride Level 107, Carbon Dioxide Level 18L, Anion Gap 11, Blood Urea Nitrogen 37H, Creatinine 0.95, Estimat Glomerular Filtration Rate 93, BUN/Creatinine Ratio 39, Glucose Level 99, Calcium Level 8.5 Laboratory Tests 03/30/22 13:29 03/31/22 05:29 03/31/22 05:39 A/P-Cardiology Assessment/Admission Diagnosis Minimal troponin elevation - likely due to episodes of transient hypotension (type 2 HI) - no evidence of acute coronary syndrome - echo 03/31/22: LVEF 60-65%, no RWMA, PASP 30-35 mmHg Postural dizziness/syncope - likely do postural hypotension Sinus bayron without symptoms Tonsillar CA - treated with chemo, managed by Onc and Med Svces S/p PEG in Feb 2022, complicated by pneumoperitoneum - managed by Surg and Med svces Abd pain and gen malaise and poor appetite of undetermined etiology - managed by Med svces Discussion and Recomendations * D/c lisinopril or any other hypotensives or rate-lowering agenst * Echo (done) * Monitor labs * Ok for d/c from cardiac standpoint * Outpt card f/u advised BRITNI CHENG MD [facility]S Mar 31, 2022 13:30
--- NOTE | 2022-03-31 13:31 | Diagnostic Imaging Report ---
INDICATION: PEG tube evaluation. Precontrast image of the abdomen shows a PEG tube overlying the left upper quadrant. There is some nonspecific gas density in the midline upper abdomen. Bowel gas pattern is unremarkable. Next, approximately 38 mL of Gastrografin contrast mixed with 30 mL of water was injected into the indwelling PEG tube. There is opacification of the stomach with emptying of contrast into the proximal small bowel loops. No extravasation of contrast is identified. IMPRESSION: Satisfactory PEG tube location. Dictated by: Dictated on workstation # [id number]
--- NOTE | 2022-03-31 14:51 | History & Physical ---
HPI History of Present Illness: 56 yo M that presented to ER with worsening abdominal pain for 2 days. States that he had pain but the day he presented he couldn't even get up to go to treatment for his tonsilar Ca. Patient had PEG tube placed in Feb 2022. ER found that he had free air in his abdomen. This AM he reported a syncopal event on Tuesday where he stood up and only remember getting up off the floor. He figured he stood up too fast. Denies any chest pain or shortness of breath. States that he has been passing gas. + constipation but denies diarrhea. Source: patient Exam Limitations: no limitations Date seen by provider: Mar 31, 2022 Time Seen by Provider: 09:45 Attending Physician [place] PCP Admitting Physician: Shweta Adams MD Attending Physician: Medina Chiang DO Consult CARLOS MUNSON DO Date of Admission Mar 30, 2022 at 14:35 Home Medications Home Medications Reviewed patient Home Medication Reconciliation performed by pharmacy medication reconciliations bottle house quality control technician and/or nursing. Patients Allergies have been reviewed. Allergies Coded Allergies: No Known Drug Allergies (Unverified , 03/03/22) [id number] Hx Patient Social History Living Status: Lives at home alone Smoking Status: Former Smoker (0.5-1 PPD Q>30yrs) 2nd Hand Smoke Exposure: Yes Recent Hopitalizations: No Alcohol Use?: No Have you traveled recently?: No Immunizations Up To Date Tetanus Booster (TDap): Unknown Influenza Vaccine Up-to-Date: No; Not Current Past Medical History HTN Tonsilar Carcinoma Family Medical History Significant Family History: Diabetes Review of Systems ([facility]C) Constitutional: No chills; malaise, weakness EENTM: no symptoms reported; No mouth pain, No nose congestion, No nose pain, No throat pain Respiratory: No cough; dyspnea on exertion Cardiovascular: No chest pain, No edema, No palpitations Gastrointestinal: abdominal pain, constipation; No diarrhea; loss of appetite; No nausea, No vomiting Genitourinary: no symptoms reported; No dysuria, No frequency, No hematuria Musculoskeletal: No back pain, No joint pain, No muscle pain Skin: no symptoms reported Psychiatric/Neurological: Weakness Reviewed Test Results Reviewed Test Results Lab Laboratory Tests Test 03/30/22 15:08 03/31/22 05:29 03/31/22 05:39 Range/Units Lactic Acid Level 1.72 0.50-2.00 MMOL/L White Blood Count 13.1 H 4.3-11.0 10^3/uL Red Blood Count 3.51 L 4.30-5.52 10^6/uL Hemoglobin 10.7 L 13.3-17.7 g/dL Hematocrit 32 L 40-54 % Mean Corpuscular Volume 91 80-99 fL Mean Corpuscular Hemoglobin 31 25-34 pg Mean Corpuscular Hemoglobin Concent 33 32-36 g/dL Red Cell Distribution Width 14.4 10.0-14.5 % Platelet Count 181 130-400 10^3/uL Mean Platelet Volume 9.8 9.0-12.2 fL Immature Granulocyte % (Auto) 1 % Neutrophils (%) (Auto) 93 H 42-75 % Lymphocytes (%) (Auto) 2 L 12-44 % Monocytes (%) (Auto) 4 0-12 % Eosinophils (%) (Auto) 0 0-10 % Basophils (%) (Auto) 0 0-10 % Neutrophils # (Auto) 12.1 H 1.8-7.8 10^3/uL Lymphocytes # (Auto) 0.2 L 1.0-4.0 10^3/uL Monocytes # (Auto) 0.6 0.0-1.0 10^3/uL Eosinophils # (Auto) 0.0 0.0-0.3 10^3/uL Basophils # (Auto) 0.0 0.0-0.1 10^3/uL Immature Granulocyte # (Auto) 0.1 0.0-0.1 10^3/uL Troponin I 0.056 H <0.028 NG/ML Sodium Level 136 135-145 MMOL/L Potassium Level 4.9 3.6-5.0 MMOL/L Chloride Level 107 98-107 MMOL/L Carbon Dioxide Level 18 L 21-32 MMOL/L Anion Gap 11 5-14 MMOL/L Blood Urea Nitrogen 37 H 7-18 MG/DL Creatinine 0.95 0.60-1.30 MG/DL Estimat Glomerular Filtration Rate 93 BUN/Creatinine Ratio 39 Glucose Level 99 70-105 MG/DL Calcium Level 8.5 8.5-10.1 MG/DL Radiology Physical Exam-(CHC) Physical Exam Vital Signs VS - Last 72 Hours, by Label 03/30/22 03/30/22 03/30/22 03/30/22 13:25 15:34 15:50 16:40 Temp 36.5 36.5 36.1 Pulse 50 50 43 Resp 20 20 12 B/P (MAP) 112/64 (80) 116/63 121/62 (81) Pulse Ox 100 O2 Delivery Room Air Room Air 03/30/22 03/30/22 03/30/22 03/30/22 16:42 19:00 20:00 20:00 Temp 36.1 Pulse 38 47 42 42 Resp 10 15 B/P (MAP) 99/60 (73) Pulse Ox 96 97 O2 Delivery Room Air Room Air 03/30/22 03/31/22 03/31/22 03/31/22 20:29 00:41 01:00 03:29 Temp 36.8 36.6 Pulse 54 50 45 Resp 16 14 B/P (MAP) 113/60 (77) 101/61 (74) Pulse Ox 97 94 98 O2 Delivery Room Air Room Air Room Air 03/31/22 03/31/22 03/31/22 03/31/22 07:00 08:00 08:18 08:35 Temp 36.7 Pulse 45 44 57 Resp 14 18 B/P (MAP) 108/65 (79) 123/68 (86) Pulse Ox 96 98 98 O2 Delivery Room Air Room Air Room Air 03/31/22 03/31/22 11:58 13:00 Temp 36.5 Pulse 46 46 Resp 16 B/P (MAP) 108/71 (83) Pulse Ox 96 O2 Delivery Room Air Capillary Refill : General Appearance: WD/WN, no apparent distress HEENT: PERRL/EOMI Neck: non-tender, full range of motion, supple Respiratory: chest non-tender, lungs clear, normal breath sounds, no respiratory distress, no accessory muscle use Cardiovascular: normal peripheral pulses, no edema, bradycardia Gastrointestinal: soft; No rebound; tenderness Back: no CVA tenderness, no vertebral tenderness Extremities: normal range of motion, non-tender, no pedal edema, no calf tenderness, normal capillary refill Neurologic/Psychiatric: 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 II-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 nml as tested, no motor/sensory deficits, alert, normal mood/affect, oriented x 3 Skin: normal color, warm/dry Lymphatic: no adenopathy Assessment/Plan Assessment/Plan Admission Status: Inpatient Order (span 2 midnights) Reason for Inpatient Admission: High risk of decompensation due to active cancer treatment, fall at home (1) Intra-abdominal free air of unknown etiology Status: Acute Assessment & Plan: - CT reviewed, no source of free air, General surgery consulted, appreciate recommendations, NPO, PEG in place (2) Bradycardia Status: Acute Assessment & Plan: - Cardiology consulted, appreciate recommendations, Sinus bradycardia (3) HTN (hypertension) Status: Chronic Qualifiers: Qualified Codes: I10 - Essential (primary) hypertension (4) NSTEMI (non-ST elevated myocardial infarction) Status: Acute Assessment & Plan: - Likely type 2 given bradycardia (5) Tonsillar cancer Status: Acute Assessment & Plan: - Current active chemo and radiation SHWETA ADAMS MD Mar 31, 2022 14:51
[2022-03-31] MEDS: FLUCONAZOLE 200 MG/100 ML 200 ML IV SCH (15:30)
[2022-04-01] MEDS: PROMETHAZINE INJ 25 MG/ML (PHENERGAN) AMP IVP PRN (00:03)
[2022-04-01 04:00] VITALS: BP 111/71
[2022-04-01] MEDS: fentaNYL INJ 100 MCG/2 ML AMP IVP PRN (04:24)
[2022-04-01] MEDS: PIPERACILLIN SODIUM/TAZOBACTAM 4.5 GM in NS (IVPB) 100 ML IV SCH ×3 (04:24→20:50)
--- NOTE | 2022-04-01 05:16 | Progress Note - Hospitalist ---
Subjective HPI/CC On Admission Date Seen by Provider: Apr 01, 2022 Time Seen by Provider: 09:30 Subjective/Events-last exam Improved Pain controlled Advancing diet Moving to 4th floor Review of Systems General: Fatigue, Malaise Gastrointestinal: Abdominal Pain Focused Exam Lactate Level 03/30/22 15:08: Lactic Acid Level 1.72 Objective Exam Vital Signs Vital Signs Date Time Temp Pulse Resp B/P (MAP) Pulse Ox O2 Delivery O2 Flow Rate FiO2 04/01/22 16:03 36.7 58 14 97/58 (71) 98 Room Air Capillary Refill : General Appearance: No Apparent Distress, WD/WN, Chronically ill, Obese Respiratory: Lungs Clear, Normal Breath Sounds Cardiovascular: Regular Rate, Rhythm Neurologic/Psychiatric: Alert Results/Procedures Lab Laboratory Tests 04/01/22 05:13 Patient resulted labs reviewed. Assessment/Plan Assessment and Plan Assess & Plan/Chief Complaint (1) Intra-abdominal free air of unknown etiology Status: Acute Assessment & Plan: - CT reviewed, no source of free air, General surgery consulted, appreciate recommendations, NPO, PEG in place (2) Bradycardia Status: Acute Assessment & Plan: - Cardiology consulted, appreciate recommendations, Sinus bradycardia (3) HTN (hypertension) Status: Chronic Qualifiers: Qualified Codes: I10 - Essential (primary) hypertension (4) NSTEMI (non-ST elevated myocardial infarction) Status: Acute Assessment & Plan: - Likely type 2 given bradycardia (5) Tonsillar cancer Status: Acute Assessment & Plan: - Current active chemo and radiation Plan: Move to 4th floor Advance diet GEORGES HANKS DO Apr 01, 2022 05:16
[2022-04-01] MEDS: NS IV 1000 ML 1,000 ML IV SCH (05:22)
[2022-04-01 05:25] LABS: BASOPHILS % (AUTO) 0 % (0-10); EOSINOPHILS % (AUTO) 0 % (0-10); HEMATOCRIT 33 % (40-54); HEMOGLOBIN 11.1 g/dL (13.3-17.7); LYMPHOCYTES # (AUTO) 0.4 10^3/uL (1.0-4.0); LYMPHOCYTES % (AUTO) 5 % (12-44); MEAN CORPUSCULAR HEMOGLOBIN 31 pg (25-34); MEAN CORPUSCULAR HGB CONC 34 g/dL (32-36); MEAN CORPUSCULAR VOLUME 90 fL (80-99); MEAN PLATELET VOLUME 9.2 fL (9.0-12.2); MONOCYTES # (AUTO) 0.3 10^3/uL (0.0-1.0); MONOCYTES % (AUTO) 4 % (0-12); NEUTROPHILS # (AUTO) 7.7 10^3/uL (1.8-7.8); NEUTROPHILS % (AUTO) 91 % (42-75); PLATELET COUNT 157 10^3/uL (130-400); WHITE BLOOD COUNT 8.4 10^3/uL (4.3-11.0)
[2022-04-01 05:44] LABS: ALBUMIN 3.2 GM/DL (3.2-4.5); POTASSIUM 4.2 MMOL/L (3.6-5.0)
[2022-04-01 05:45] LABS: CALCIUM 8.7 MG/DL (8.5-10.1)
[2022-04-01 05:47] LABS: TOTAL PROTEIN 5.4 GM/DL (6.4-8.2)
[2022-04-01 05:48] LABS: BILIRUBIN,TOTAL 0.8 MG/DL (0.1-1.0)
[2022-04-01 05:50] LABS: CREATININE SERUM 0.97 MG/DL (0.60-1.30)
[2022-04-01 08:19] VITALS: BP 79/62
--- NOTE | 2022-04-01 09:21 | Progress Note - Surgery ---
MATTHEW MENDOZA 04/01/22 0921: Subjective Date Seen by a Provider: Apr 01, 2022 Time Seen by a Provider: 08:00 Subjective/Events-last exam Patient resting comfortably in bed. States he had a couple of episodes of pain this early this morning. States he feels like he could probably go home tomorr ow, little leery to go home today due to those bouts of pain this AM. Tube imaging shows tube in place with no extravasion of dye. Review of Systems General: No Chills, No Night Sweats HEENT: No Head Aches, No Visual Changes Pulmonary: No Dyspnea, No Cough Cardiovascular: No: Chest Pain, Palpitations Gastrointestinal: Abdominal Pain; No: Nausea, Vomiting Genitourinary: No Dysuria, No Frequency Neurological: No: Weakness, Numbness Focused Exam Lactate Level 03/30/22 15:08: Lactic Acid Level 1.72 Objective Exam Vital Signs Date Time Temp Pulse Resp B/P (MAP) Pulse Ox O2 Delivery O2 Flow Rate FiO2 04/01/22 08:19 72 16 79/62 (68) 95 Room Air 04/01/22 08:14 98 Room Air 04/01/22 04:00 51 13 111/71 (84) 96 Room Air 04/01/22 01:00 50 03/31/22 23:58 52 13 108/63 (78) 98 Room Air 03/31/22 20:03 95 Room Air 03/31/22 20:00 36.8 52 16 113/68 (83) 95 Room Air 03/31/22 19:00 46 03/31/22 15:27 45 16 126/73 (90) 98 Room Air 03/31/22 13:00 46 03/31/22 11:58 36.5 46 16 108/71 (83) 96 Room Air I & O 04/01/22 07:00 Intake Total 1550 ml Output Total 2650 ml Balance -1100 ml Capillary Refill : General Appearance: No Apparent Distress, WD/WN Neck: Non Tender, Supple Respiratory: Chest Non Tender, Lungs Clear, Normal Breath Sounds, No Accessory Muscle Use, No Respiratory Distress Cardiovascular: Regular Rate, Rhythm, No Murmur, Normal Peripheral Pulses Gastrointestinal: soft; No distended, No guarding; tenderness (to deep palp ation LLQ) Extremity: Non Tender, No Calf Tenderness, No Pedal Edema Neurologic/Psychiatric: Alert, Oriented x3, Normal Mood/Affect Skin: Normal Color, Warm/Dry Results Lab Laboratory Tests 04/01/22 05:13: White Blood Count 8.4, Red Blood Count 3.60L, Hemoglobin 11.1L, Hematocrit 33L, Mean Corpuscular Volume 90, Mean Corpuscular Hemoglobin 31, Mean Corpuscular Hemoglobin Concent 34, Red Cell Distribution Width 14.5, Platelet Count 157, Mean Platelet Volume 9.2, Immature Granulocyte % (Auto) 1, Neutrophils (%) (Auto) 91H, Lymphocytes (%) (Auto) 5L, Monocytes (%) (Auto) 4, Eosinophils (%) (Auto) 0, Basophils (%) (Auto) 0, Neutrophils # (Auto) 7.7, Lymphocytes # (Auto) 0.4L, Monocytes # (Auto) 0.3, Eosinophils # (Auto) 0.0, Basophils # (Auto) 0.0, Immature Granulocyte # (Auto) 0.1, Sodium Level 136, Potassium Level 4.2, Chloride Level 104, Carbon Dioxide Level 22, Anion Gap 10, Blood Urea Nitrogen 28H, Creatinine 0.97, Estimat Glomerular Filtration Rate 91, BUN/Creatinine Ratio 29, Glucose Level 80, Calcium Level 8.7, Corrected Calcium 9.3, Total Bilirubin 0.8, Aspartate Amino Transf (AST/SGOT) 20, Alanine Aminotransferase (ALT/SGPT) 59H, Alkaline Phosphatase 64, Total Protein 5.4L, Albumin 3.2 Microbiology 03/30/22 Blood Culture - Preliminary, Resulted Staph, Coag Neg (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 Transition to oral fluids, oral pain control, progress diet Up and ambulating, IS Patient clinical status improving daily If patient tolerates diet progression today and oral fluids and oral pain control will feel comfortable D/C patient tomorrow. Patient will have received three days of zosyn. No growth on cultures, so not sure patient will need outpatient Abx. TANG TAMAYO DO 04/01/22 1004: Subjective Time Seen by a Provider: 09:47 Subjective/Events-last exam Pt seen and examined, states he is hungry and wants solid food. Had some minimal episodes of pain, did not last long. Review of Systems General: No Chills, No Night Sweats; Malaise Pulmonary: No Dyspnea, No Cough Cardiovascular: No: Chest Pain, Palpitations Gastrointestinal: Abdominal Pain; No: Nausea, Vomiting Objective Exam General Appearance: No Apparent Distress, Chronically ill Respiratory: Chest Non Tender, Lungs Clear, Normal Breath Sounds, No Accessory Muscle Use, No Respiratory Distress Cardiovascular: Regular Rate, Rhythm, No Murmur Gastrointestinal: soft; No distended, No guarding; tenderness (to deep palpation LLQ - minimal) Neurologic/Psychiatric: Alert, Oriented x3 Assessment/Plan Assessment/Plan Assessment/Plan Pneumoperitoneum Tonsil Cancer - 4x doses of Chemotherapy + Radiation Immunosuppression Leukocytosis Elevated Troponin Bradycardia Hypertension Plan Increase diet to minced/moist. Continue IV Zosyn, Diflucan will switch to oral tomorrow. Switch to oral pain control, encourage ambulating, IS Patient clinical status improving daily. If patient tolerates diet progression today and oral fluids and oral pain control will feel comfortable D/C patient tomorrow. Patient will have received three days of zosyn. No growth on cultures, so not sure patient will need outpatient Abx. Supervisory-Addendum Brief Verification & Attestation Participated in pt care: history, MDM, physical Personally performed: exam, history, MDM, supervision of care Care discussed with: Medical Student Procedures: n/a Verification and Attestation of Medical Student E/M Service A medical student performed and documented this service. I then reviewed and verified all information documented by the medical student and made modifications to such information, when appropriate. I personally performed a physical exam, medical decision making and then discussed any differences between the notes and made revisions as necessary to create one note. Tang Tamayo , 04/01/22 , 10:04 MATTHEW MENDOZA Apr 01, 2022 09:21 TANG TAMAYO DO Apr 01, 2022 10:04
[2022-04-01] MEDS ORDERED: ONDANSETRON 4 MG/2 ML (SDV) Z0FRAN IVP PRN (10:15)
[2022-04-01] MEDS ORDERED: diphenhydrAMINE 25 MG TAB (BENADRYL) PO PRN (10:15)
[2022-04-01] MEDS ORDERED: ACETAMINOPHEN 325 MG TABLET PO PRN (10:15)
[2022-04-01] MEDS ORDERED: DOCUSATE SODIUM 100 MG (COLACE) CAP PO PRN (10:15)
[2022-04-01] MEDS ORDERED: BISACODYL 10 MG SUPP (DULCOLAX) PR PRN (10:15)
[2022-04-01] MEDS ORDERED: NS (IVPB) 250 ML IV PRN (10:15)
[2022-04-01] MEDS ORDERED: MELATONIN 3 MG TABLET PO PRN (10:15)
[2022-04-01] MEDS ORDERED: LACTULOSE SYRUP 10GM/15ML (ENULOSE) 30ML UDC PO PRN (10:15)
[2022-04-01] MEDS ORDERED: ONDANSETRON 4 MG (ZOFRAN) ORAL DISSOLVE TAB PO PRN (10:15)
[2022-04-01] MEDS ORDERED: ALPRAZolam 0.25 MG (XANAX) TAB PO PRN (10:15)
[2022-04-01] MEDS ORDERED: MENTHOL/ZINC OXIDE (CALMOSEPTINE) 113 GM TUBE TP PRN (10:15)
[2022-04-01] MEDS ORDERED: CALCIUM CARBONATE 500 MG (TUMS) TAB.CHEW PO PRN (10:15)
[2022-04-01] MEDS: ENOXAPARIN 40 MG/0.4 ML (LOVENOX) SYR SC SCH (11:18)
--- NOTE | 2022-04-01 11:28 | Physical Therapy Evaluation ---
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 8-Lpjlrjmasv-idawyiz completes the activity by him/herself with no assistance from a helper. 5-Set-up or Clean-up Assistance-helper sets up or cleans up; patient completes activity. [place] assists only prior to or following the activity. 4-Supervision or Touching Assistance-helper provides verbal cues and/or touching/steadying and/or contact guard assistance as patient completes activity. Assistance may be provided throughout the activity or intermittently. 3-Partial/Moderate Assistance-helper does LESS THAN HALF the effort. [place] lifts, holds or supports trunk or limbs, but provides less than half the effort. 2-Substantial/Maximal Assistance-helper does MORE THAN HALF the effort. [place] lifts or holds trunk or limbs and provides more than half the effort. 1-Nvuxtwlcm-qvanix does ALL the effort. Patient does none of the effort to complete the activity. Or, the assistance of 2 or more helpers is required for the patient to complete the activity. If activity was not attempted, code reason: 7-Patient Refused. 9-Not Applicable-not attempted and the patient did not perform the activity before the current illness, exacerbation or injury. 10-Not Attempted due to Environmental Limitations-(lack of equipment, weather restraints, etc.). 88-Not Attempted due to Medical Conditions or Safety Concerns. Bed Mobility: 6 Transfers (B,C,W/C): 6 Gait: 6 Stairs: 6 Indoor Mobility (Ambulation): Independent Stairs: Independent PT Evaluation-Current Subjective Patient agrees to PT. Objective Patient Orientation: Normal For Age Attachments: PEG Tube ROM/Strength ROM Lower Extremities bilateral LE WFL Strength Lower Extremities 4/5 grossly bilateral LE all planes Integumentary/Posture Bowel Incontinence: No Bladder Incontinence: No Neuromuscular (Tone, Coordination, Reflexes) grossly intact Sensory Vision: Functional Hearing: Functional Transfers Lying to Sitting/Side of Bed(Q: 6 Sit to Stand (QC): 6 Chair/Uib-ba-Ydefi Xfer(QC): 6 Gait Mode of Locomotion: Walk Anticipated Mode of Locomotion: Walk Walk 10 feet (QC): 6 Walk 50 ft with 2 Turns(QC): 6 Walk 150 ft (QC): 6 Distance: 200' Gait Assistive Device: None Comments/Gait Description safe and functional with no deviation Balance Sitting Static: Normal Sitting Dynamic: Normal Standing Static: Normal Standing Dynamic: Normal Assessment/Needs Patient is currently at independent OF with all gross motor skills and does not require skilled PT intervention. Rehab Potential: Fair PT Plan Treatment/Plan Treatment Plan: Discontinue PT, goals met Treatment Duration: Apr 01, 2022 Frequency: 1 time per week Estimated Hrs Per Day: .25 hour per day Patient and/or Family Agrees t: Yes Time Time In: 1050 Time Out: 1100 DATE: Apr 01, 2022 Total Billed Treatment Time: 10 Total Billed Treatment 1 visit EVLow 10 min KULWANT WALKER PT Apr 01, 2022 11:28
[2022-04-01 11:30] VITALS: BP 103/73
--- NOTE | 2022-04-01 15:00 | Progress Note - Cardiology ---
Cardiology SOAP Progress Note Subjective: No cp or palp or syncope or shortness of breath at rest No n/v/d Some gen malaise Objective: I&O/Vital Signs 04/01/22 04/01/22 04/01/22 04/01/22 04:00 08:14 08:19 09:00 Temp 36.6 Pulse 51 72 Resp 13 16 B/P (MAP) 111/71 (84) 79/62 (68) Pulse Ox 96 98 95 O2 Delivery Room Air Room Air Room Air 04/01/22 11:30 Temp 36.2 Pulse 92 Resp 18 B/P (MAP) 103/73 (83) Pulse Ox 97 O2 Delivery Room Air 04/01/22 00:00 Intake Total 400 ml Output Total 875 ml Balance -475 ml Constitutional: AAO x 3, well-developed, well-nourished Respiratory: No accessory muscle use; other (good bilat air entry that is diminished at the bases) Cardiovascular: regular rate-rhythm, bradycardia, S1 and S2, systolic murmur (soft MASSIEL at card base) Gastrointestional: other (mild gen tenderness w/o rebound or guarding, PEG tube close midline in LUQ, audible bs) Extremities: No clubbing, No cyanosis, No significant edema Neurologic/Psychiatric: oriented x 3, other (moves all limbs equally) Skin: No rash on exposed areas, No ulcerations on exposed areas Results/Procedures: Labs Laboratory Tests 04/01/22 05:13: White Blood Count 8.4, Red Blood Count 3.60L, Hemoglobin 11.1L, Hematocrit 33L, Mean Corpuscular Volume 90, Mean Corpuscular Hemoglobin 31, Mean Corpuscular Hemoglobin Concent 34, Red Cell Distribution Width 14.5, Platelet Count 157, Mean Platelet Volume 9.2, Immature Granulocyte % (Auto) 1, Neutrophils (%) (Auto) 91H, Lymphocytes (%) (Auto) 5L, Monocytes (%) (Auto) 4, Eosinophils (%) (Auto) 0, Basophils (%) (Auto) 0, Neutrophils # (Auto) 7.7, Lymphocytes # (Auto) 0.4L, Monocytes # (Auto) 0.3, Eosinophils # (Auto) 0.0, Basophils # (Auto) 0.0, Immature Granulocyte # (Auto) 0.1, Sodium Level 136, Potassium Level 4.2, Chloride Level 104, Carbon Dioxide Level 22, Anion Gap 10, Blood Urea Nitrogen 28H, Creatinine 0.97, Estimat Glomerular Filtration Rate 91, BUN/Creatinine Ratio 29, Glucose Level 80, Calcium Level 8.7, Corrected Calcium 9.3, Total Bilirubin 0.8, Aspartate Amino Transf (AST/SGOT) 20, Alanine Aminotransferase (ALT/SGPT) 59H, Alkaline Phosphatase 64, Total Protein 5.4L, Albumin 3.2 Microbiology 03/30/22 Blood Culture - Preliminary, Resulted Staph, Coag Neg (TELEPHONE APPOINTMENT 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) Laboratory Tests 03/31/22 05:29 03/31/22 05:39 04/01/22 05:13 A/P: Assessment: Minimal troponin elevation - likely due to episodes of transient hypotension (type 2 [place]) - no evidence of acute coronary syndrome - echo 03/31/22: LVEF 60-65%, no RWMA, PASP 30-35 mmHg Postural dizziness/syncope - likely do postural hypotension Sinus bayron without symptoms Tonsillar CA - treated with chemo, managed by Onc and Med Svces S/p PEG in Feb 2022, complicated by pneumoperitoneum - managed by Surg and Med svces Abd pain and gen malaise and poor appetite of undetermined etiology - managed by Med svces Plan: * Off all bp med * Hydrate as needed * Monitor labs BRITNI CHENG MD FACP [facility] Apr 01, 2022 15:00
[2022-04-01 16:03] VITALS: BP 97/58
[2022-04-01] MEDS: FLUCONAZOLE 200 MG/100 ML 200 ML IV SCH (16:14)
[2022-04-01] MEDS: HYDROcodone/APAP 5 MG/325 MG (LORTAB) TAB PO PRN (19:27)
[2022-04-01 20:00] VITALS: BP 106/62
[2022-04-01] MEDS: SENNA W/DOCUSATE (SENOKOT S) TABLET PO SCH (20:58)
[2022-04-01 23:18] VITALS: BP 102/65
[2022-04-02 04:00] VITALS: BP 102/55
[2022-04-02] MEDS: PIPERACILLIN SODIUM/TAZOBACTAM 4.5 GM in NS (IVPB) 100 ML IV SCH (05:17)
[2022-04-02 07:16] VITALS: BP 128/76
[2022-04-02] MEDS: SENNA W/DOCUSATE (SENOKOT S) TABLET PO SCH ×2 (08:47→09:11)
[2022-04-02] MEDS: ENOXAPARIN 40 MG/0.4 ML (LOVENOX) SYR SC SCH (09:12)
[2022-04-02] MEDS: HYDROcodone/APAP 5 MG/325 MG (LORTAB) TAB PO PRN (10:31)
[2022-04-02] MEDS ORDERED: ONDA-106 PO (11:15)
--- NOTE | 2022-04-02 11:16 | Discharge Summary ---
Discharge Summary Hospital Course Was the Problem List Reviewed?: Yes Problems/Dx: (1) Intra-abdominal free air of unknown etiology Status: Acute (2) NSTEMI (non-ST elevated myocardial infarction) Status: Acute (3) Bradycardia Status: Acute (4) Chemotherapy induced nausea and vomiting Status: Acute (5) Dysphagia Status: Acute Hospital Course Date of Admission: Mar 30, 2022 at 14:35 Admission Diagnosis : Family Physician/Provider: Jacklyn Harmon Aprn Date of Discharge: 04/02/22 Discharge Diagnosis: abdominal free air of unknown etiology, esophageal cancer undergoing radiation treatment, chemotherapy induced N/V Hospital Course: Uneventful course after he was admitted for abdominal pain and was found to have free air of uncertain etiology. Conservative management initiated along with surgery consultation with empiric abx. IVF maintained and patient required Cardiology for Type 2 NSTEMI. Patient was found to be stable and was DC after diet initiated and tolerated. 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 MANAGER) Home Meds Active Ondansetron HCl 8 Mg Tablet 8 Mg PO BID Reported Dexamethasone 4 Mg Tablet 4 Mg PO BID Lidocaine HCl Viscous (Lidocaine HCl) 2 % Solution 5 Ml MM BID PRN SWISH AND SWALLOW Meloxicam 15 Mg Tablet 15 Mg PO DAILY Colace (Docusate Sodium) 100 Mg Capsule 100 Mg PO DAILY Hydrocodone-Acetamin 5-325 mg (Hydrocodone/Acetaminophen) 5 Mg-325 Mg Tablet 1 Tab PO Q6H PRN Lisinopril 10 Mg Tablet 10 Mg PO DAILY Assessment/Pt Instructions PCP 1 week Discharge Planning: <30 minutes discharge planning Discharge Physical Examination Vital Signs Vital Signs Date Time Temp Pulse Resp B/P (MAP) Pulse Ox O2 Delivery O2 Flow Rate FiO2 04/02/22 07:37 97 Room Air 04/02/22 07:16 35.8 57 18 128/76 (93) General Appearance: No Apparent Distress, WD/WN, Chronically ill Respiratory: Lungs Clear, Normal Breath Sounds Cardiovascular: Regular Rate, Rhythm Neurologic/Psychiatric: Alert, Oriented x3 Allergies: Coded Allergies: No Known Drug Allergies (Unverified , 03/03/22) Discharge Summary Date of Admission Mar 30, 2022 at 14:35 Date of Discharge Discharge Date: Apr 02, 2022 Discharge Diagnosis (1) Intra-abdominal free air of unknown etiology Status: Acute Assessment & Plan: - CT reviewed, no source of free air, General surgery consulted, appreciate recommendations, NPO, PEG in place (2) Bradycardia Status: Acute Assessment & Plan: - Cardiology consulted, appreciate recommendations, Sinus bradycardia (3) HTN (hypertension) Status: Chronic Qualifiers: Qualified Codes: I10 - Essential (primary) hypertension (4) NSTEMI (non-ST elevated myocardial infarction) Status: Acute Assessment & Plan: - Likely type 2 given bradycardia (5) Tonsillar cancer Status: Acute Assessment & Plan: - Current active chemo and radiation Plan: Move to 4th floor Advance diet GEORGES HANKS DO Apr 02, 2022 11:16
[2022-04-02 12:32] VITALS: BP 117/77
--- NOTE | 2022-04-02 12:54 | Progress Note - Surgery ---
Subjective Time Seen by a Provider: 11:45 Subjective/Events-last exam Pt seen and examined, he denies any abdominal pain and is tolerating diet. He is having BMs. Review of Systems General: Fatigue Pulmonary: No Dyspnea, No Cough Cardiovascular: No: Chest Pain, Palpitations Gastrointestinal: No: Nausea, Vomiting, Abdominal Pain Genitourinary: No Dysuria, No Frequency Focused Exam Lactate Level 03/30/22 15:08: Lactic Acid Level 1.72 Objective Exam Vital Signs Date Time Temp Pulse Resp B/P (MAP) Pulse Ox O2 Delivery O2 Flow Rate FiO2 04/02/22 12:32 36.5 68 18 117/77 (90) 99 Room Air 04/02/22 07:37 97 Room Air 04/02/22 07:16 35.8 57 18 128/76 (93) 97 Room Air 04/02/22 04:00 35.7 57 18 102/55 (71) 98 Room Air 04/01/22 23:18 36.4 48 16 102/65 (77) 99 Room Air 04/01/22 20:00 Room Air 04/01/22 20:00 36.5 56 16 106/62 (77) 97 Room Air 04/01/22 16:03 36.7 58 14 97/58 (71) 98 Room Air I & O 04/02/22 07:00 Intake Total 935 ml Balance 935 ml Capillary Refill : General Appearance: No Apparent Distress, Chronically ill HEENT: PERRL/EOMI, Other (poor dentition) Respiratory: Lungs Clear, Normal Breath Sounds Cardiovascular: Regular Rate, Rhythm, No Murmur Gastrointestinal: non tender, soft; No distended, No guarding Extremity: Non Tender, No Calf Tenderness, No Pedal Edema Neurologic/Psychiatric: Alert Skin: Warm/Dry, Pallor Results Lab Microbiology 03/30/22 Blood Culture - Preliminary, Resulted Staph, Coag Neg (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 D/C home. CARLOS MUNSON DO Apr 02, 2022 12:54
--- NOTE | 2022-04-02 13:17 | Progress Note - Cardiology ---
Cardiology SOAP Progress Note Subjective: No shortness of breath No cp or palp or syncope Notes malaise and weakness No n/v/d No swelling Objective: I&O/Vital Signs 04/02/22 04/02/22 04/02/22 04/02/22 04:00 07:16 07:37 12:32 Temp 35.7 35.8 36.5 Pulse 57 57 68 Resp 18 18 18 B/P (MAP) 102/55 (71) 128/76 (93) 117/77 (90) Pulse Ox 98 97 97 99 O2 Delivery Room Air Room Air Room Air Room Air 04/01/22 23:59 Intake Total 660 ml Balance 660 ml Constitutional: AAO x 3, well-developed, well-nourished Respiratory: No accessory muscle use; other (good bilat air entry that is diminished at the bases) Cardiovascular: regular rate-rhythm, bradycardia, S1 and S2, systolic murmur (soft MASSIEL at card base) Gastrointestional: other (mild gen tenderness w/o rebound or guarding, PEG tube close midline in LUQ, audible bs) Extremities: No clubbing, No cyanosis, No significant edema Neurologic/Psychiatric: oriented x 3, other (moves all limbs equally) Skin: No rash on exposed areas, No ulcerations on exposed areas Results/Procedures: Labs Microbiology 03/30/22 Blood Culture - Preliminary, Resulted Staph, Coag Neg (SAND MILLER) Laboratory Tests 04/01/22 05:13 A/P: Assessment: Minimal troponin elevation - likely due to episodes of transient hypotension (type 2 CA) - no evidence of acute coronary syndrome - echo 03/31/22: LVEF 60-65%, no RWMA, PASP 30-35 mmHg Postural dizziness/syncope - likely do postural hypotension Sinus bayron without symptoms Tonsillar CA - treated with chemo, managed by Onc and Med Svces S/p PEG in Feb 2022, complicated by pneumoperitoneum - managed by Surg and Med svces Abd pain and gen malaise and poor appetite of undetermined etiology - managed by Med svces Plan: * We recommend he remain off all bp med * Monitor labs * Outpt f/u advised [facility]NI CHENG [facility] Apr 02, 2022 13:17
[2022-04-02 13:46] VITALS: BP 117/77
== END 2022-04-02 13:46 | disposition home or self-care (01) | DRG 391 ==
LOC: EDUNIT# 13:22 → ER 13:25 → CSD 14:35 → UNDOADMIN 15:17 → 4TH 04-01 11:31
PROVIDERS: ADMIT Family Medicine; ATTEND Internal Medicine
DX: R14.0 Abdominal distension (gaseous) (principal); I21.A1 Myocardial infarction type 2; Z93.1 Gastrostomy status; C09.9 Malignant neoplasm of tonsil, unspecified; R00.1 Bradycardia, unspecified; I10 Essential (primary) hypertension; Z87.891 Personal history of nicotine dependence; K21.9 Gastro-esophageal reflux disease without esophagitis; F41.9 Anxiety disorder, unspecified; K66.8 Other specified disorders of peritoneum; D72.829 Elevated white blood cell count, unspecified; I95.1 Orthostatic hypotension; R11.2 Nausea with vomiting, unspecified; T45.1X5A Adverse effect of antineoplastic and immunosuppressive drugs, initial encounter
CPT/HCPCS: 36415; 49465; 71045; 74177; 77386; 80048; 80053; 83605; 83690; 84484; 85007; 85025; 85027; 85610; 85730; 87040; 93005; 93306

== ENCOUNTER → 2022-04-07 | Outpatient (RCR) | payer MEDICAID ==
[2022-03-15 10:37] LABS: BASOPHILS # (AUTO) 0.1 10^3/uL (0.0-0.1); BASOPHILS % (AUTO) 0 % (0-10); EOSINOPHILS # (AUTO) 0.2 10^3/uL (0.0-0.3); EOSINOPHILS % (AUTO) 1 % (0-10); HEMATOCRIT 44 % (40-54); HEMOGLOBIN 15.1 g/dL (13.3-17.7); LYMPHOCYTES # (AUTO) 1.4 10^3/uL (1.0-4.0); LYMPHOCYTES % (AUTO) 7 % (12-44); MEAN CORPUSCULAR HEMOGLOBIN 30 pg (25-34); MEAN CORPUSCULAR HGB CONC 34 g/dL (32-36); MEAN CORPUSCULAR VOLUME 88 fL (80-99); MEAN PLATELET VOLUME 10.1 fL (9.0-12.2); MONOCYTES # (AUTO) 1.3 10^3/uL (0.0-1.0); MONOCYTES % (AUTO) 7 % (0-12); NEUTROPHILS # (AUTO) 15.7 10^3/uL (1.8-7.8); NEUTROPHILS % (AUTO) 83 % (42-75); PLATELET COUNT 338 10^3/uL (130-400); WHITE BLOOD COUNT 18.8 10^3/uL (4.3-11.0)
[2022-03-15 10:56] LABS: ALBUMIN 4.2 GM/DL (3.2-4.5); BILIRUBIN,TOTAL 0.7 MG/DL (0.1-1.0); CALCIUM 10.3 MG/DL (8.5-10.1); CREATININE SERUM 1.08 MG/DL (0.60-1.30); POTASSIUM 4.5 MMOL/L (3.6-5.0); TOTAL PROTEIN 7.5 GM/DL (6.4-8.2)
[2022-03-22 09:17] LABS: BASOPHILS # (AUTO) 0.1 10^3/uL (0.0-0.1); BASOPHILS % (AUTO) 1 % (0-10); EOSINOPHILS # (AUTO) 0.1 10^3/uL (0.0-0.3); EOSINOPHILS % (AUTO) 1 % (0-10); HEMATOCRIT 38 % (40-54); HEMOGLOBIN 12.9 g/dL (13.3-17.7); LYMPHOCYTES # (AUTO) 0.7 10^3/uL (1.0-4.0); LYMPHOCYTES % (AUTO) 11 % (12-44); MEAN CORPUSCULAR HEMOGLOBIN 31 pg (25-34); MEAN CORPUSCULAR HGB CONC 34 g/dL (32-36); MEAN CORPUSCULAR VOLUME 89 fL (80-99); MEAN PLATELET VOLUME 9.7 fL (9.0-12.2); MONOCYTES # (AUTO) 0.5 10^3/uL (0.0-1.0); MONOCYTES % (AUTO) 7 % (0-12); NEUTROPHILS # (AUTO) 5.1 10^3/uL (1.8-7.8); NEUTROPHILS % (AUTO) 80 % (42-75); PLATELET COUNT 253 10^3/uL (130-400); WHITE BLOOD COUNT 6.5 10^3/uL (4.3-11.0)
[2022-03-22 09:46] LABS: ALBUMIN 3.8 GM/DL (3.2-4.5); BILIRUBIN,TOTAL 0.5 MG/DL (0.1-1.0); CALCIUM 9.2 MG/DL (8.5-10.1); CREATININE SERUM 1.03 MG/DL (0.60-1.30); POTASSIUM 4.4 MMOL/L (3.6-5.0); TOTAL PROTEIN 6.5 GM/DL (6.4-8.2)
[2022-03-29 10:13] LABS: BASOPHILS % (AUTO) 0 % (0-10); EOSINOPHILS % (AUTO) 0 % (0-10); HEMATOCRIT 36 % (40-54); HEMOGLOBIN 12.3 g/dL (13.3-17.7); LYMPHOCYTES # (AUTO) 0.5 10^3/uL (1.0-4.0); LYMPHOCYTES % (AUTO) 4 % (12-44); MEAN CORPUSCULAR HEMOGLOBIN 30 pg (25-34); MEAN CORPUSCULAR HGB CONC 34 g/dL (32-36); MEAN CORPUSCULAR VOLUME 90 fL (80-99); MEAN PLATELET VOLUME 9.1 fL (9.0-12.2); MONOCYTES # (AUTO) 0.5 10^3/uL (0.0-1.0); MONOCYTES % (AUTO) 5 % (0-12); NEUTROPHILS # (AUTO) 9.4 10^3/uL (1.8-7.8); NEUTROPHILS % (AUTO) 90 % (42-75); PLATELET COUNT 247 10^3/uL (130-400); WHITE BLOOD COUNT 10.5 10^3/uL (4.3-11.0)
[2022-03-29 10:38] LABS: ALBUMIN 3.8 GM/DL (3.2-4.5); BILIRUBIN,TOTAL 0.3 MG/DL (0.1-1.0); CALCIUM 9.3 MG/DL (8.5-10.1); CREATININE SERUM 1.11 MG/DL (0.60-1.30); POTASSIUM 4.5 MMOL/L (3.6-5.0); TOTAL PROTEIN 6.2 GM/DL (6.4-8.2)
[2022-04-05 10:12] LABS: BASOPHILS % (AUTO) 0 % (0-10); EOSINOPHILS # (AUTO) 0.1 10^3/uL (0.0-0.3); EOSINOPHILS % (AUTO) 1 % (0-10); HEMATOCRIT 36 % (40-54); HEMOGLOBIN 12.5 g/dL (13.3-17.7); LYMPHOCYTES # (AUTO) 0.6 10^3/uL (1.0-4.0); LYMPHOCYTES % (AUTO) 9 % (12-44); MEAN CORPUSCULAR HEMOGLOBIN 31 pg (25-34); MEAN CORPUSCULAR HGB CONC 34 g/dL (32-36); MEAN CORPUSCULAR VOLUME 90 fL (80-99); MEAN PLATELET VOLUME 9.1 fL (9.0-12.2); MONOCYTES # (AUTO) 0.4 10^3/uL (0.0-1.0); MONOCYTES % (AUTO) 7 % (0-12); NEUTROPHILS # (AUTO) 5.3 10^3/uL (1.8-7.8); NEUTROPHILS % (AUTO) 82 % (42-75); PLATELET COUNT 160 10^3/uL (130-400); WHITE BLOOD COUNT 6.5 10^3/uL (4.3-11.0)
[2022-04-05 10:36] LABS: ALBUMIN 3.8 GM/DL (3.2-4.5); BILIRUBIN,TOTAL 0.5 MG/DL (0.1-1.0); CALCIUM 9.4 MG/DL (8.5-10.1); CREATININE SERUM 1.03 MG/DL (0.60-1.30); POTASSIUM 4.1 MMOL/L (3.6-5.0); TOTAL PROTEIN 6.5 GM/DL (6.4-8.2)
[~2022-04-07] MED LIST changes: +CISPLATIN IV SCH; +DEXA4TAB PO; +DEXAMETHASONE IV SCH; +DOCU-143 PO; +FOSAPREPITANT (CANCER CENTER) 150 MG in NS (IVPB) CANCER CENTER ONLY 150 ML IV SCH; +HEParin (CENTRAL IV FLUSH) 500 UNIT/5 ML SYR IV PRN; +MAGNESIUM SULFATE IV SCH; +MANNITOL IV SCH; +MELO15TA39 PO; +NS IV 1000 ML (CANCER CTR) IV SCH; +NS IV SCH; +ONDA-106 PO; +ONDANSETRON IV SCH; +POTASSIUM CHLORIDE IV SCH; +[UNRECOGNIZED DRUG - OTHER] IV SCH
== END | disposition home or self-care (01) ==
LOC: ONC 03-09 12:42
PROVIDERS: ATTEND Internal Medicine Hematology & Oncology
DX: Z51.0 Encounter for antineoplastic radiation therapy (principal); C02.4 Malignant neoplasm of lingual tonsil
CPT/HCPCS: 77386; G0463; 36591; 77336; 80053; 83735; 85025; 96360; 96361; 96367; 96375; 96413; 99213

== ENCOUNTER 2022-05-06 13:10 | Outpatient (RCR) | payer MEDICAID ==
[2022-04-12 09:09] LABS: BASOPHILS % (AUTO) 0 % (0-10); EOSINOPHILS % (AUTO) 6 % (0-10); MEAN PLATELET VOLUME 9.2 fL (9.0-12.2)
[2022-04-12 09:10] LABS: EOSINOPHILS # (AUTO) 0.2 10^3/uL (0.0-0.3); HEMATOCRIT 33 % (40-54); HEMOGLOBIN 10.9 g/dL (13.3-17.7); LYMPHOCYTES # (AUTO) 0.4 10^3/uL (1.0-4.0); LYMPHOCYTES % (AUTO) 11 % (12-44); MEAN CORPUSCULAR HEMOGLOBIN 31 pg (25-34); MEAN CORPUSCULAR HGB CONC 33 g/dL (32-36); MEAN CORPUSCULAR VOLUME 94 fL (80-99); MONOCYTES # (AUTO) 0.2 10^3/uL (0.0-1.0); MONOCYTES % (AUTO) 6 % (0-12); NEUTROPHILS # (AUTO) 2.7 10^3/uL (1.8-7.8); NEUTROPHILS % (AUTO) 76 % (42-75); PLATELET COUNT 136 10^3/uL (130-400); WHITE BLOOD COUNT 3.5 10^3/uL (4.3-11.0)
[2022-04-12 09:31] LABS: ALBUMIN 3.6 GM/DL (3.2-4.5); BILIRUBIN,TOTAL 0.3 MG/DL (0.1-1.0); CALCIUM 9.6 MG/DL (8.5-10.1); CREATININE SERUM 1.05 MG/DL (0.60-1.30); POTASSIUM 4.6 MMOL/L (3.6-5.0); TOTAL PROTEIN 6.2 GM/DL (6.4-8.2)
[2022-04-19 08:40] LABS: BASOPHILS % (AUTO) 1 % (0-10); EOSINOPHILS # (AUTO) 0.1 10^3/uL (0.0-0.3); EOSINOPHILS % (AUTO) 4 % (0-10); HEMATOCRIT 34 % (40-54); LYMPHOCYTES # (AUTO) 0.3 10^3/uL (1.0-4.0); LYMPHOCYTES % (AUTO) 11 % (12-44); MEAN CORPUSCULAR HEMOGLOBIN 31 pg (25-34); MEAN CORPUSCULAR HGB CONC 33 g/dL (32-36); MEAN CORPUSCULAR VOLUME 95 fL (80-99); MEAN PLATELET VOLUME 9.2 fL (9.0-12.2); MONOCYTES # (AUTO) 0.3 10^3/uL (0.0-1.0); MONOCYTES % (AUTO) 10 % (0-12); NEUTROPHILS # (AUTO) 2.1 10^3/uL (1.8-7.8); NEUTROPHILS % (AUTO) 74 % (42-75); PLATELET COUNT 207 10^3/uL (130-400); WHITE BLOOD COUNT 2.8 10^3/uL (4.3-11.0)
[2022-04-19 08:58] LABS: ALBUMIN 3.6 GM/DL (3.2-4.5); BILIRUBIN,TOTAL 0.3 MG/DL (0.1-1.0); CALCIUM 9.3 MG/DL (8.5-10.1); CREATININE SERUM 1.11 MG/DL (0.60-1.30); POTASSIUM 4.3 MMOL/L (3.6-5.0); TOTAL PROTEIN 6.2 GM/DL (6.4-8.2)
[2022-04-26 08:49] LABS: BASOPHILS # (AUTO) 0.1 10^3/uL (0.0-0.1); BASOPHILS % (AUTO) 1 % (0-10); EOSINOPHILS % (AUTO) 0 % (0-10); HEMATOCRIT 36 % (40-54); HEMOGLOBIN 11.9 g/dL (13.3-17.7); LYMPHOCYTES # (AUTO) 0.3 10^3/uL (1.0-4.0); LYMPHOCYTES % (AUTO) 5 % (12-44); MEAN CORPUSCULAR HEMOGLOBIN 31 pg (25-34); MEAN CORPUSCULAR HGB CONC 34 g/dL (32-36); MEAN CORPUSCULAR VOLUME 93 fL (80-99); MEAN PLATELET VOLUME 9.6 fL (9.0-12.2); MONOCYTES # (AUTO) 0.7 10^3/uL (0.0-1.0); MONOCYTES % (AUTO) 10 % (0-12); NEUTROPHILS # (AUTO) 5.6 10^3/uL (1.8-7.8); NEUTROPHILS % (AUTO) 82 % (42-75); PLATELET COUNT 249 10^3/uL (130-400); WHITE BLOOD COUNT 6.8 10^3/uL (4.3-11.0)
[2022-04-26 09:04] LABS: BILIRUBIN,TOTAL 0.3 MG/DL (0.1-1.0); CALCIUM 9.5 MG/DL (8.5-10.1); CREATININE SERUM 1.02 MG/DL (0.60-1.30); MAGNESIUM 1.5 MG/DL (1.6-2.4); POTASSIUM 3.8 MMOL/L (3.6-5.0); TOTAL PROTEIN 6.6 GM/DL (6.4-8.2)
== END 2022-05-08 | disposition home or self-care (01) ==
LOC: ONC 13:10
PROVIDERS: ATTEND Internal Medicine Hematology & Oncology
DX: Z51.0 Encounter for antineoplastic radiation therapy (principal); C02.4 Malignant neoplasm of lingual tonsil
CPT/HCPCS: 36591; 77336; 77385; 77386; 80053; 83735; 85025; 96360; 96361; 96367; 96375; 96413; 99213

== ENCOUNTER 2022-06-03 10:39 | Outpatient (RCR) | payer MEDICAID ==
[2022-05-26 10:31] LABS: BASOPHILS % (AUTO) 1 % (0-10); EOSINOPHILS # (AUTO) 0.1 10^3/uL (0.0-0.3); EOSINOPHILS % (AUTO) 2 % (0-10); HEMATOCRIT 32 % (40-54); HEMOGLOBIN 10.5 g/dL (13.3-17.7); LYMPHOCYTES # (AUTO) 0.3 10^3/uL (1.0-4.0); LYMPHOCYTES % (AUTO) 12 % (12-44); MEAN CORPUSCULAR HEMOGLOBIN 33 pg (25-34); MEAN CORPUSCULAR HGB CONC 33 g/dL (32-36); MEAN CORPUSCULAR VOLUME 99 fL (80-99); MEAN PLATELET VOLUME 9.2 fL (9.0-12.2); MONOCYTES # (AUTO) 0.5 10^3/uL (0.0-1.0); MONOCYTES % (AUTO) 17 % (0-12); NEUTROPHILS % (AUTO) 68 % (42-75); PLATELET COUNT 219 10^3/uL (130-400); WHITE BLOOD COUNT 2.9 10^3/uL (4.3-11.0)
[2022-05-26 11:22] LABS: ALBUMIN 3.7 GM/DL (3.2-4.5); BILIRUBIN,TOTAL 0.5 MG/DL (0.1-1.0); CALCIUM 9.2 MG/DL (8.5-10.1); CREATININE SERUM 1.16 MG/DL (0.60-1.30); POTASSIUM 3.4 MMOL/L (3.6-5.0); TOTAL PROTEIN 6.1 GM/DL (6.4-8.2)
[~2022-06-03 10:39] MED LIST changes: -CISPLATIN IV SCH; -DEXAMETHASONE IV SCH; -FOSAPREPITANT (CANCER CENTER) 150 MG in NS (IVPB) CANCER CENTER ONLY 150 ML IV SCH; -HEParin (CENTRAL IV FLUSH) 500 UNIT/5 ML SYR IV PRN; -MAGNESIUM SULFATE IV SCH; -MANNITOL IV SCH; -NS IV 1000 ML (CANCER CTR) IV SCH; -NS IV SCH; -ONDANSETRON IV SCH; -POTASSIUM CHLORIDE IV SCH; -[UNRECOGNIZED DRUG - OTHER] IV SCH
== END 2022-06-08 | disposition home or self-care (01) ==
LOC: ONC 10:39
PROVIDERS: ATTEND Internal Medicine Hematology & Oncology
DX: C76.0 Malignant neoplasm of head, face and neck (principal)
CPT/HCPCS: 80053; 83735; 85025; G0463; 36415; 99213

== ENCOUNTER → 2022-06-11 | Outpatient (CLI) | payer MEDICAID ==
[~2022-06-11] MED LIST changes: +CATHETER FLUSH 10 ML SYR IV PRN; +HOLD METFORMIN - RECEIVED CONTRAST 20 ML VIAL IV SCH; +IOHEXOL 350 MG/ML 100 ML (OMNIPAQUE 350) VIAL IV ONE; +NS 100 ML (IVPB) BAG IV ONE
--- NOTE | 2022-06-11 13:51 | Diagnostic Imaging Report ---
EXAMINATION: CT neck, chest, abdomen, and pelvis with intravenous contrast. TECHNIQUE: Multiple contiguous axial images were obtained through the neck, chest, abdomen and pelvis after the uneventful administration of intravenous contrast. All CT scans use one or more of the following dose optimizing techniques: Automated exposure control, MA and/or KvP adjustment based on patient size and exam type or iterative reconstruction. HISTORY: Squamous cell carcinoma of the tonsil. COMPARISON: 02/23/2022. FINDINGS: Neck CT: The mass centered in the right tonsil has resolved with no residual measurable mass seen. There is mild effacement of the fascial planes, which may be related to treatment. The cervical lymphadenopathy on the left has resolved. The lymph nodes in the neck are now subcentimeter. The muscles of the neck are normal. Vessels of the neck demonstrate normal course and caliber. Fascial planes are preserved and the deep spaces of the neck are normal. The visualized airway is widely patent. The base of the skull and the temporal bones are normal. Limited views of the brain including the cerebellum and brainstem are normal. The limited view of the [place] of [place] is unremarkable. The visualized portions of the orbits are normal. No suspicious osseous lesion. Chest CT: There is no edema or pneumonia. No pleural effusion. No pneumothorax. There is mild atelectasis in the right lower lobe. No suspicious nodule. There is no axillary or supraclavicular lymphadenopathy. There is no mediastinal lymphadenopathy. Heart size is normal. There are no coronary artery calcifications. No pericardial effusion. Aorta is normal in caliber. Abdomen and Pelvis CT: The liver is normal without focal lesion. There is no biliary ductal dilation. Gallbladder is normal. Pancreas is normal. Spleen is normal. Adrenal glands are normal. The kidneys are normal. There is no hydronephrosis. Urinary bladder is normal. Bowel is normal in caliber without obstruction or inflammation. There is a percutaneous gastrostomy tube. No free fluid or air. No abdominal or pelvic lymphadenopathy. Aorta is normal in caliber without aneurysm. There are no suspicious osseous lesions. IMPRESSION: 1. Previously seen right neck mass has resolved. No lymphadenopathy in the neck. 2. No metastatic disease in the chest, abdomen, or pelvis. Dictated by: Dictated on workstation # [id number]
== END ==
LOC: RAD 11:23
PROVIDERS: ATTEND Internal Medicine Hematology & Oncology
DX: C02.4 Malignant neoplasm of lingual tonsil (principal)
CPT/HCPCS: 70491; 71260; 74176

== ENCOUNTER 2022-07-07 09:08 | Outpatient (RCR) | payer MEDICAID ==
[~2022-07-07 09:08] MED LIST changes: -CATHETER FLUSH 10 ML SYR IV PRN; -HOLD METFORMIN - RECEIVED CONTRAST 20 ML VIAL IV SCH; -IOHEXOL 350 MG/ML 100 ML (OMNIPAQUE 350) VIAL IV ONE; +LIDO15SO6 MM; -LIDO20SO23 MM; -NS 100 ML (IVPB) BAG IV ONE
[2022-07-07 09:24] LABS: BASOPHILS # (AUTO) 0.1 10^3/uL (0.0-0.1); BASOPHILS % (AUTO) 1 % (0-10); EOSINOPHILS # (AUTO) 0.2 10^3/uL (0.0-0.3); EOSINOPHILS % (AUTO) 3 % (0-10); HEMATOCRIT 36 % (40-54); HEMOGLOBIN 11.8 g/dL (13.3-17.7); LYMPHOCYTES # (AUTO) 0.5 10^3/uL (1.0-4.0); LYMPHOCYTES % (AUTO) 9 % (12-44); MEAN CORPUSCULAR HEMOGLOBIN 33 pg (25-34); MEAN CORPUSCULAR HGB CONC 33 g/dL (32-36); MEAN CORPUSCULAR VOLUME 101 fL (80-99); MEAN PLATELET VOLUME 9.4 fL (9.0-12.2); MONOCYTES # (AUTO) 0.6 10^3/uL (0.0-1.0); MONOCYTES % (AUTO) 9 % (0-12); NEUTROPHILS # (AUTO) 4.7 10^3/uL (1.8-7.8); NEUTROPHILS % (AUTO) 79 % (42-75); PLATELET COUNT 184 10^3/uL (130-400)
[2022-07-07 09:45] LABS: BILIRUBIN,TOTAL 0.8 MG/DL (0.1-1.0); CALCIUM 9.9 MG/DL (8.5-10.1); CREATININE SERUM 1.18 MG/DL (0.60-1.30); MAGNESIUM 1.9 MG/DL (1.6-2.4); POTASSIUM 3.7 MMOL/L (3.6-5.0); TOTAL PROTEIN 6.5 GM/DL (6.4-8.2)
== END 2022-08-06 | disposition home or self-care (01) ==
LOC: ONC 09:08
PROVIDERS: ATTEND Internal Medicine Hematology & Oncology
DX: C76.0 Malignant neoplasm of head, face and neck (principal)
CPT/HCPCS: 36415; 80053; 83735; 85025

== ENCOUNTER 2022-10-01 11:06 | Outpatient (CLI) | payer MEDICAID ==
[~2022-10-01] VITALS: Ht 185.4 cm; Wt 71.9 kg
[~2022-10-01 11:06] MED LIST changes: +LIDO15SO3 MM; -LIDO15SO6 MM
[2022-10-05] MEDS ORDERED: SUCR1TAB36 PO (10:50)
[2022-10-05] MEDS ORDERED: PANT40TA2 PO (10:50)
== END 2022-10-01 12:13 | disposition home or self-care (01) ==
LOC: PREOP 11:06
PROVIDERS: ATTEND Surgery
DX: Z01.818 Encounter for other preprocedural examination (principal); Z12.11 Encounter for screening for malignant neoplasm of colon; R11.0 Nausea

== ENCOUNTER 2022-10-05 08:31 | Day surgery (SDC) | payer MEDICAID ==
[~2022-10-05] VITALS: Ht 185.4 cm; Wt 71.9 kg
[2022-10-05] MEDS ORDERED: LACTATED RINGERS 1,000 ML IV STA (08:43)
[2022-10-05] MEDS ORDERED: HURRICAINE EXT TUBE (BENZOCAINE) XX PRN (08:45)
[2022-10-05 09:15] VITALS: BP 122/80
--- NOTE | 2022-10-05 09:46 | Progress Note-Pre Operative ---
Pre-Operative Progress Note Date H&P Reviewed: October 05, 2022 Time H&P Reviewed: 09:46 History & Physical: H&P Reviewed, Patient Examed, No changes noted Pre-Operative Diagnosis: n/v, screening colonoscopy KAYY FLORES DO October 05, 2022 09:46
[2022-10-05] MEDS ORDERED: PROPOFOL INJECTION 50 ML IV ONE ×2 (10:13→10:43)
[2022-10-05] MEDS ORDERED: MIDAZOLAM 2 MG/2 ML (VERSED) VIAL ONE (10:14)
--- NOTE | 2022-10-05 10:49 | Progress Note-Post Operative ---
Post-Operative Progess Note Surgeon (s)/Corporate Security Manager (s) Surgeon KAYY FLORES DO Corporate Security Manager: na Pre-Operative Diagnosis n/v, screening colonoscopy Post-Operative Diagnosis duodenal ulcer, duodenitis, gastritis, hiatal hernia, normal colon Procedure & Operative Findings Date of Procedure 10/05/22 Procedure Performed/Findings egd c biopsies, colonoscopy Anesthesia Type per chainstitch elastic attacher Estimated Blood Loss Estimated blood loss (mL): none Specimens/Packing Specimens Removed duodenum, antrum, ge KAYY FLORES DO October 05, 2022 10:49
[2022-10-05 10:50] VITALS: BP 131/74
[2022-10-05] MEDS ORDERED: PANT40TA2 PO (10:50)
[2022-10-05] MEDS ORDERED: SUCR1TAB36 PO (10:50)
--- NOTE | 2022-10-05 10:51 | Discharge Inst-Simple/Standard ---
Discharge Inst-Standard Discharge Medications New, Converted or Re-Newed RX: Transmitted to Pharmacy Patient Instructions/Follow Up Plan of Care/Instructions/FU: 2 weeks Elva Activity as Tolerated: Yes Discharge Diet: Regular Diet (ulcer/gastritis diet) KAYY FLORES DO October 05, 2022 10:51
[2022-10-05 10:55] VITALS: BP 124/73
[2022-10-05 11:00] VITALS: BP 140/52
[2022-10-05 11:30] VITALS: BP 140/52
--- NOTE | 2022-10-05 14:38 | Anesthesia-General Post-Op ---
MAC Patient Condition Mental Status/LOC: Same as Preop Cardiovascular: Satisfactory Nausea/Vomiting: Absent Respiratory: Satisfactory Pain: Controlled Complications: Absent Post Op Complications Complications None Follow Up Care/Instructions Patient Instructions None needed. Anesthesiology Discharge Order Discharge Order Patient is doing well, no complaints, stable vital signs, no apparent adverse anesthesia problems. No complications reported per nursing. JIMMY BERNAL CRNA October 05, 2022 14:38
--- NOTE | 2022-10-05 16:38 | OPERATIVE REPORT ---
DATE OF SERVICE: 10/05/2022 PREOPERATIVE DIAGNOSES: Nausea, vomiting, screening colonoscopy. POSTOPERATIVE DIAGNOSES: Duodenal ulcer, duodenitis, gastritis, hiatal hernia, small, normal colon. PROCEDURES: EGD with biopsies, colonoscopy. SURGEON: Kayy Stevenson DO ANESTHESIA: Per IMAGING SYSTEM ADMINISTRATOR. ESTIMATED BLOOD LOSS: None. COMPLICATIONS: None. INDICATIONS: The patient is a 57-year-old male who has been having nausea, vomiting and he has also never had a screening colonoscopy. He understands risks and benefits of procedure and wished to proceed. Consent was signed in chart. DESCRIPTION OF PROCEDURE: The patient was taken to the endoscopy suite, placed in left lateral recumbent position. Timeout was performed. Scope was inserted in the mouth, down the esophagus, stomach, into the duodenum. Duodenitis was present and also duodenal ulcer. Biopsy of duodenum was obtained. Scope was slowly retracted back into the stomach. Gastritis appearance as well. Biopsy of the antrum was obtained. Scope was retroflexed noting a small hiatal hernia, no other pathology. Scope was returned to its normal position, slowly withdrawn until distal esophagus. Biopsy of GE junction was obtained. No polyps, masses or ulcerations. Scope was slowly retracted back until completely removed. Digital rectal exam was performed. No palpable polyps, masses or ulcerations. Some internal hemorrhoids. Scope was inserted in the rectum and advanced all the way to the way to the cecum with minimal difficulty. Prep was adequate. Scope was slowly retracted back. No polyps, masses or ulcerations in the cecum, ascending, transverse, descending and sigmoid colon. Once in the rectum, scope was retroflexed noting no other pathology. Scope was returned to its normal position, slowly withdrawn until completely removed. The patient tolerated the procedure well without complications, taken to recovery room in stable condition. RECOMMENDATIONS: The patient will need repeat colonoscopy in 10 years unless family history of colon cancer, which will then be 5 years. The patient with duodenal ulcer, duodenitis, gastritis, small hiatal hernia, we will start him on Protonix 40 mg b.i.d. and Carafate 1 gram 4 times a day. He will follow up in 2 weeks and at that point, would likely change it to daily at that time. We would consider repeating EGD in 6-8 weeks to make sure that ulcer is healed. Any worsening of symptoms, he should be reevaluated at that time. Job ID: [id number] DocumentID: [id number] Dictated Date: 10/05/2022 10:54:40 Brick Setter Operator Date: 10/05/2022 16:36:00 Dictated By: KAYY STEVENSON DO
== END 2022-10-05 12:00 | disposition home or self-care (01) ==
LOC: ENDO 08:31
PROVIDERS: ATTEND Surgery
DX: Z12.11 Encounter for screening for malignant neoplasm of colon (principal); K26.9 Duodenal ulcer, unspecified as acute or chronic, without hemorrhage or perforation; K29.80 Duodenitis without bleeding; K29.50 Unspecified chronic gastritis without bleeding; K21.00 Gastro-esophageal reflux disease with esophagitis, without bleeding; K44.9 Diaphragmatic hernia without obstruction or gangrene; F17.210 Nicotine dependence, cigarettes, uncomplicated; Z85.818 Personal history of malignant neoplasm of other sites of lip, oral cavity, and pharynx; Z28.310 Unvaccinated for COVID-19